=== PATIENT | male | born 1955 | race Caucasian/White ===

== ENCOUNTER 2017-08-23 10:12 | Emergency (ER) | payer OTHER ==
[2017-08-23 10:19] VITALS: BMI 26.6
[2017-08-23 10:22] VITALS: TEMP 98.4
[2017-08-23] MEDS ORDERED: Morphine 4 MG/ML VIAL ONE (12:54)
--- NOTE | 2017-08-23 13:06 | RAD ---
PROCEDURE: CHEST RADIOGRAPH, 1 VIEW HISTORY: cough COMPARISON: Chest radiograph dated 04/26/2016 FINDINGS: LUNGS: Clear. PLEURA: No pneumothorax or pleural fluid seen. CARDIOVASCULAR: Cardiomediastinal silhouette unchanged. OSSEOUS STRUCTURES: Unchanged. VISUALIZED UPPER ABDOMEN: Normal. OTHER FINDINGS: None. IMPRESSION: No active disease.
[2017-08-23] MEDS: Albuterol 0.083% Inhal Sol (2.5 mg/3 mL) UD INH STA (13:13)
[2017-08-23] MEDS: Sodium Chloride 0.9% 1,000 ML IV ONE (13:13)
[2017-08-23 13:14] LABS: BASO % 0.5 % (0.0-2.0); EOS # 0.1 K/uL (0.0-0.7); EOS % 0.8 % (0.0-4.0); HEMOGLOBIN 13.7 g/dL (12.0-18.0); LYMPH # 1.1 K/uL (1.0-4.3); LYMPH % 14.9 % (20.0-40.0); MEAN CELL VOLUME 89.1 fl (80.0-94.0); MEAN CORPUSCULAR HEMOGLOBIN 30.1 pg (27.0-31.0); MEAN CORPUSCULAR HGB CONC 33.7 g/dL (33.0-37.0); MEAN PLATELET VOLUME 7.1 fl (7.2-11.7); MONO # 0.9 K/uL (0.0-0.8); MONO % 12.6 % (0.0-10.0); NEUT # 5.1 K/uL (1.8-7.0); NEUT % 71.2 % (50.0-75.0); NRBC % 0.1 % (0.0-0.0); RBC 4.56 Mil/uL (4.40-5.90); RED CELL DISTRIBUTION WIDTH 12.5 % (11.5-14.5); WHITE BLOOD COUNT 7.2 K/uL (4.8-10.8)
--- NOTE | 2017-08-23 13:54 | CT ---
PROCEDURE: CT HEAD WITHOUT CONTRAST. HISTORY: Headache COMPARISON: None available. TECHNIQUE: Axial computed tomography images were obtained through the head/brain without intravenous contrast. Radiation dose: Total exam DLP = 853.75 mGy-cm. This CT exam was performed using one or more of the following dose reduction techniques: Automated exposure control, adjustment of the mA and/or kV according to patient size, and/or use of iterative reconstruction technique. FINDINGS: HEMORRHAGE: No intracranial hemorrhage. BRAIN: Munoz-white matter differentiation is preserved. There is no mass, mass effect or abnormal extra-axial fluid collection. VENTRICLES: The ventricles are normal in size, shape and configuration. CALVARIUM: The skull base and calvarium are normal. PARANASAL SINUSES: There is extensive abnormal soft tissue in the ethmoid air cells with fluid levels in the posterior ethmoid air cells, visualized maxillary sinus and fluid levels in the sphenoid sinus. The visualized frontal sinuses are clear. MASTOID AIR CELLS: Predominantly clear. OTHER FINDINGS: None. IMPRESSION: No acute intracranial abnormality. Severe ethmoid, maxillary and sphenoid sinusitis. Superimposed fluid levels in the posterior ethmoid and sphenoid sinuses may represent acute sinusitis in the appropriate clinical setting. These findings probably explain the cause of patient's headache.
[2017-08-23 14:08] LABS: ALB/GLOB RATIO 1.1 (1.0-2.1); ALT/SGPT 33 U/L (21-72); AST/SGOT 20 U/L (17-59); BLOOD UREA NITROGEN 13 mg/dl (9-20); CALCIUM 9.2 mg/dL (8.4-10.2); GFR AFRICAN-AMERICAN > 60; GFR NON-AFRICAN AMERICAN > 60
--- NOTE | 2017-08-23 14:53 | ED PDOC ---
HPI: CCC, URI, Sore Throat Time Seen by Provider: 08/23/17 10:45 Chief Complaint (Nursing): Flu-like Symptoms History Per: Patient History/Exam Limitations: no limitations Onset/Duration Of Symptoms: Gradual (8 days), Worse Since (last ngiht) Current Symptoms Are (Timing): Still Present Location Of Pain: Diffuse Myalgias, Headache Sick Contacts (Context): None Associated Symptoms: Chills, Sore Throat, Cough. denies: Fever, Sputum, Neck Pain, Sinus Drainage, Myalgias, Nasal Congestion, Nausea, Vomiting, Diarrhea Ear Symptoms: Bilateral: None Severity: Moderate Additional History Per: Patient, Family (daughter) Additional Complaint(s): Pt c/o headache, fever, cough and eyes burning x 8 days. Pt taking Mucinex w/o relief. no travel or sick contacts Past Medical History Vital Signs: Last Vital Signs Temp 98.4 F 08/23/17 10:19 Pulse 100 H 08/23/17 10:19 Resp 16 08/23/17 10:19 BP 129/78 08/23/17 10:19 Pulse Ox 99 08/23/17 10:19 - Medical History PMH: Anxiety, Arthritis, Depression, HTN, Hypercholesterolemia, Hyperlipidemia Denies: Atrial Fibrillation, CHF - Family History Family History: States: Unknown Family Hx - Home Medications Home Medications: Ambulatory Orders Medication Instructions Recorded Alprazolam [Alprazolam] 2 mg PO HS 10/24/14 Atorvastatin [Lipitor] 20 mg PO HS 10/24/14 Ciprofloxacin HCl [Cipro] 500 mg PO BID #14 tab 10/24/14 Cyclobenzaprine Hydrochlorid 5 mg PO DAILY PRN 10/24/14 [Cyclobenzaprine] Enalapril Maleate [Enalapril] 50 mg PO DAILY 10/24/14 Glimepiride [Glimepiride] 4 mg PO DAILY 10/24/14 Live Yeast Cell/Shark Oil 1 oin TP BID #1 oin 10/24/14 [Hemorrhoid Preparation] Meloxicam [Meloxicam] 15 mg PO DAILY 10/24/14 Metformin HCl [Metformin] 1,000 mg PO BID 10/24/14 Metronidazole [Flagyl] 500 mg PO BID #14 tab 10/24/14 Oxycodone HCl/Acetaminophen 1 tab PO Q6 PRN #14 tab 10/24/14 [Percocet 325 mg-5 mg] Risperidone [Risperidone] 0.5 mg PO HS 10/24/14 Sertraline Hydrochloride 100 mg PO DAILY 10/24/14 [Sertraline Hydrochloride] Sitagliptin Phosphate [Januvia] 100 mg PO BID 10/24/14 Zolpidem Tartrate [Zolpidem] 10 mg PO HS 10/24/14 Dicyclomine [Bentyl] 20 mg PO Q8 PRN #30 tab 04/26/16 Amoxicillin/Clavulanate [Augmentin 1 tab PO BID 10 Days tab 08/23/17 875 MG-125 MG] oxyCODONE/Acetaminophen [Percocet 1 ea PO QID PRN #12 tab 08/23/17 5/325 mg Tab] - Allergies Allergies/Adverse Reactions: Allergies Allergy/AdvReac Type Severity Reaction Status Date / Time No Known Allergies Allergy Verified 08/23/17 11:02 Review of Systems ROS Statement: Except As Marked, All Systems Reviewed And Found Negative Constitutional: Positive for: Chills. Negative for: Fever Cardiovascular: Negative for: Chest Pain, Palpitations, Light Headedness Respiratory: Positive for: Cough. Negative for: Shortness of Breath, Pleuritic Pain, Sputum Gastrointestinal: Negative for: Nausea, Vomiting, Abdominal Pain, Diarrhea Neurological: Positive for: Headache. Negative for: Weakness, Numbness, Confusion, Seizures, Altered Mental Status, Dizziness Physical Exam - Reviewed Nursing Documentation Reviewed: Yes Vital Signs Reviewed: Yes - Physical Exam Appears: Positive for: Uncomfortable Head Exam: Positive for: ATRAUMATIC, NORMAL INSPECTION, NORMOCEPHALIC Eye Exam: Positive for: Normal appearance, EOMI, PERRL. Negative for: Periorbital swelling, Periorbital tenderness, Conjunctival injection ENT: Positive for: Pharynx Is (clear). Negative for: Nasal Congestion, Pharyngeal Erythema, Tonsillar Exudate, Tonsillar Swelling Neck: Positive for: Normal, Painless ROM, Supple. Negative for: Decreased ROM, Limited ROM, Trachea Midline Cardiovascular/Chest: Positive for: Regular Rate, Rhythm, Chest Non Tender. Negative for: Edema, Gallop, Murmur, Bradycardia, Tachycardia Respiratory: Positive for: Normal Breath Sounds. Negative for: Decreased Breath Sounds, Accessory Muscle Use, Crackles, Stridor, Wheezing, Respiratory Distress Pulses-Radial (L): 2+ Pulses-Radial (R): 2+ Gastrointestinal/Abdominal: Positive for: Normal Exam, Bowel Sounds, Soft. Negative for: Tenderness Back: Positive for: Normal Inspection. Negative for: L CVA Tenderness, R CVA Tenderness Extremity: Positive for: Normal ROM. Negative for: Tenderness, Pedal Edema, Calf Tenderness, Deformity, Swelling Neurologic/Psych: Positive for: Alert, car carder II-XII, Oriented. Negative for: Motor/Sensory Deficits, Aphasia, Facial Droop - Laboratory Results Result Diagrams: 08/23/17 12:45 08/23/17 12:45 - ECG ECG: Positive for: Interpreted By Me ECG Rhythm: Positive for: Normal QRS, Normal ST Segment, Sinus Rhythm (rate of 83), ST/T Changes Interpretation Of Abn EKG: no evidence of ischemia O2 Sat by Pulse Oximetry: 99 Pulse Ox Interpretation: Normal - Radiology X-Ray: Interpreted by Me X-Ray Interpretation: No Acute Disease - Progress ED Course And Treament: ct head with sinusitis. sx amrkedly improved given unasyn. advise augmentin and percocet for pain close f/u with pmd/ Re-evaluation Time: 14:00 Condition: Improved Disposition - Clinical Impression Clinical Impression: Sinusitis - Patient ED Disposition Is Patient to be Admitted: No Counseled Patient/Family Regarding: Studies Performed, Diagnosis, Need For Followup - Disposition Referrals: [facility] [Outside] (2 to 3 days) Deo Neville MD [Staff Provider] - (2 to 3 days) Disposition: Routine/Home Disposition Time: 14:55 Condition: STABLE Prescriptions: Amoxicillin/Clavulanate [Augmentin 875 MG-125 MG] 1 tab PO BID 10 Days tab oxyCODONE/Acetaminophen [Percocet 5/325 mg Tab] 1 ea PO QID PRN #12 tab PRN Reason: Pain, Moderate (4-7) Instructions: Sinusitis (ED) Print Language: CHINESE
[2017-08-23 18:36] VITALS: BP 122/70; PULSE 76; RESP 18; O2SAT 98
--- NOTE | 2017-08-24 11:04 | CARD ---
APPROVED REPORT EKG Measurement Heart [id number] NM [id number] <Conclusion> Normal sinus rhythm Normal ECG
== END 2017-08-23 17:00 | disposition home or self-care (01) ==
LOC: H.ER 10:12
DX: J32.3 Chronic sphenoidal sinusitis (principal); R05 Cough; E78.00 Pure hypercholesterolemia, unspecified; F32.9 Major depressive disorder, single episode, unspecified; F41.9 Anxiety disorder, unspecified; I10 Essential (primary) hypertension; Z79.84 Long term (current) use of oral hypoglycemic drugs
CPT/HCPCS: 70450; 71045; 80053; 84484; 85025; 87070; 87430; 87804; 93005; 94640; 96361; 96365; 96375; 99283; J0295; J2270; J7040

== ENCOUNTER 2018-03-11 03:17 | Inpatient (IN) | payer OTHER ==
[2018-03-11 03:27] VITALS: BMI 26.4
[2018-03-11] MEDS ORDERED: Sodium Chloride 0.9% 1,000 ML IV STA ×2 (04:17→05:21)
[2018-03-11] MEDS ORDERED: Iohexol 240 (50 ml) PO ONE (04:32)
[2018-03-11] MEDS ORDERED: Iohexol 240 (50 ml) ONE (04:39)
--- NOTE | 2018-03-11 04:59 | ED PDOC ---
HPI: Abdomen Time Seen by Provider: 03/11/18 03:35 Chief Complaint (Nursing): Abdominal Pain Chief Complaint (Provider): Abdominal Pain History Per: Patient History/Exam Limitations: no limitations Onset/Duration Of Symptoms: Days (x5) Current Symptoms Are (Timing): Still Present Additional Complaint(s): 62 year old male with pmHx of DM and HTN, arrives to ED with complaints of diffuse abdominal pain associated with fever, chills and intermittent diarrhea ongoing for 3 days. Additionally, he reports experiencing insomnia for 4 days and asking for "something to help him sleep". Patient denies any vomiting, bloody stools or urinary symptoms. Past Medical History Reviewed: Historical Data, Nursing Documentation, Vital Signs Vital Signs: Last Vital Signs Temp 98.5 F 03/11/18 17:36 Pulse 106 H 03/11/18 17:36 Resp 20 03/11/18 17:36 BP 107/76 03/11/18 17:36 Pulse Ox 98 03/11/18 17:36 - Medical History PMH: Anxiety, Arthritis, Depression, HTN, Hypercholesterolemia, Hyperlipidemia Denies: Atrial Fibrillation, CHF - Surgical History Surgical History: Endoscopy - Family History Family History: States: Unknown Family Hx - Social History Current smoker - smoking cessation education provided: No Ex-Smoker (has not smoked in the last 12 months): No Alcohol: None Drugs: Denies - Home Medications Home Medications: Ambulatory Orders Medication Instructions Recorded ALPRAZolam [Xanax] 2 mg PO BID 03/11/18 Aspirin [Aspirin Chewable] 81 mg PO DAILY 03/11/18 Enalapril Maleate [Vasotec] 5 mg PO DAILY 03/11/18 Metformin HCl [Glucophage] 1,000 mg PO BID 03/11/18 Pravastatin Sodium [Pravachol] 40 mg PO HS 03/11/18 SITagliptin [Januvia] 100 mg PO DAILY 03/11/18 Zolpidem Tartrate [Ambien] 10 mg PO HS PRN 03/11/18 - Allergies Allergies/Adverse Reactions: Allergies Allergy/AdvReac Type Severity Reaction Status Date / Time No Known Allergies Allergy Verified 03/11/18 03:44 Review of Systems ROS Statement: Except As Marked, All Systems Reviewed And Found Negative Constitutional: Positive for: Fever, Chills, Malaise (insomnia) Gastrointestinal: Positive for: Abdominal Pain, Diarrhea (intermittent). Negative for: Vomiting, Hematochezia Genitourinary Male: Negative for: Dysuria, Incontinence, Hematuria Physical Exam - Reviewed Nursing Documentation Reviewed: Yes Vital Signs Reviewed: Yes - Physical Exam Appears: Positive for: Non-toxic, No Acute Distress Head Exam: Positive for: ATRAUMATIC, NORMAL INSPECTION, NORMOCEPHALIC Skin: Positive for: Normal Color Eye Exam: Positive for: Normal appearance ENT: Positive for: Normal ENT Inspection Neck: Positive for: Normal Cardiovascular/Chest: Positive for: Chest Non Tender, Tachycardia (with regular rate) Respiratory: Positive for: Normal Breath Sounds. Negative for: Respiratory Distress Gastrointestinal/Abdominal: Positive for: Soft, Tenderness (epigastric; suprapubic) Back: Positive for: Normal Inspection Extremity: Positive for: Normal ROM (upper/lower) Neurologic/Psych: Positive for: Alert, Oriented. Negative for: Motor/Sensory Deficits - Laboratory Results Result Diagrams: 03/11/18 04:31 03/11/18 04:31 - ECG O2 Sat by Pulse Oximetry: 95 (RA) Pulse Ox Interpretation: Normal Medical Decision Making Medical Decision Making: Initial Impression: Abdominal pain Differential Diagnosis includes but not limited to: colitis; diverticulitis; UTI r/o appendicitis Initial Plan: * VBG * CT ABD/pelvis with IV contrast * EKG * CMP * Lipase * Urine dipstick * CBC * Accucheck * Ativan 1mg IVP * NS 1,000ml IV per 1,000mls/hr * Omnipaque 50ml PO * Toradol 30mg IVP * Blood culture * UA Scribe Attestation: Documented by Nava Danielson, acting as a scribe for Byron Ugalde MD. Provider Scribe Attestation: All medical record entries made by the Scribe were at my direction and personally dictated by me. I have reviewed the chart and agree that the record accurately reflects my personal performance of the history, physical exam, medical decision making, and the department course for this patient. I have also personally directed, reviewed, and agree with the discharge instructions and disposition. Time: 699 -- Patient endorsed to Dr. Hernandez, pending urine and CT. ____ Scribe Attestation: Documented by Tito Funk acting as a scribe for Dr. Byron Ugalde MD. Provider Scribe Attestation: All medical record entries made by the Scribe were at my direction and personally dictated by me. I have reviewed the chart and agree that the record accurately reflects my personal performance of the medical decision making for this patient. I have also personally directed, reviewed, and agree with the discharge instructions and disposition. Disposition - Clinical Impression Clinical Impression: Liver abscess, Sepsis - Patient ED Disposition Is Patient to be Admitted: Transfer of Care Counseled Patient/Family Regarding: Studies Performed, Diagnosis - Disposition Disposition: Transfer of Care Disposition Time: 07:00 Condition: STABLE Patient Signed Over To: Madi Hernandez
[2018-03-11 05:06] LABS: VENOUS BLOOD GAS BASE EXCESS -0.2 mmol/L (0.0-2.0); VENOUS BLOOD GAS PCO2 41 mmHg (40-60); VENOUS BLOOD GAS PO2 30 mm/Hg (30-55); VENOUS BLOOD PH 7.39 (7.32-7.43)
[2018-03-11 05:16] LABS: BASO % 0.3 % (0.0-2.0); HEMOGLOBIN 15.1 g/dL (12.0-18.0); LYMPH # 0.3 K/uL (1.0-4.3); LYMPH % 2.5 % (20.0-40.0); MEAN CELL VOLUME 90.3 fl (80.0-94.0); MEAN CORPUSCULAR HEMOGLOBIN 30.5 pg (27.0-31.0); MEAN CORPUSCULAR HGB CONC 33.7 g/dL (33.0-37.0); MEAN PLATELET VOLUME 7.4 fl (7.2-11.7); MONO # 0.9 K/uL (0.0-0.8); NEUT % 90.2 % (50.0-75.0); PLATELET COUNT 232 K/uL (130-400); RBC 4.94 Mil/uL (4.40-5.90); RED CELL DISTRIBUTION WIDTH 14.3 % (11.5-14.5); WHITE BLOOD COUNT 13.3 K/uL (4.8-10.8)
[2018-03-11 05:22] LABS: ALB/GLOB RATIO 1.5 (1.0-2.1); ALT/SGPT 42 U/L (21-72); AST/SGOT 32 U/L (17-59); BLOOD UREA NITROGEN 26 mg/dl (9-20); CALCIUM 9.6 mg/dL (8.4-10.2); GFR AFRICAN-AMERICAN > 60; GFR NON-AFRICAN AMERICAN > 60; LIPASE 148 U/L (23-300)
[2018-03-11 06:37] LABS: BANDS 1 % (0-2); LYMPHOCYTE 5 % (20-50); MONOCYTE 4 % (0-10); NEUTROPHIL 90 % (42-75); PLATELET ESTIMATE NORMAL (NORMAL); TOTAL CELLS COUNTED 100
[2018-03-11 06:38] LABS: ANISOCYTOSIS SLIGHT; OVALOCYTES SLIGHT; POIKILOCYTOSIS SLIGHT
[2018-03-11 06:39] LABS: TEARDROP CELLS SLIGHT
--- NOTE | 2018-03-11 07:41 | ED PDOC ---
- Laboratory Results Result Diagrams: 03/11/18 04:31 03/11/18 04:31 Interpretation Of Abn Labs: 13.3 wbc; 26 bun - ECG ECG: Positive for: Interpreted By Me, Viewed By Me ECG Rhythm: Positive for: Sinus Tachycardia O2 Sat by Pulse Oximetry: 95 (RA) Pulse Ox Interpretation: Normal - CT Scan/US ct Other Rad Studies (CT/US): Read By Radiologist Other Rad Interpretation: hepatic hypodense area US Other Rad Studies (CT/US): Read By Radiologist Other Rad Interpretation: no acute - Progress ED Course And Treament: 1229: Spoke with son. Pt. returned from DR March 03. Pain in abd since then. ? finding on liver. Will tx for liver abscess. Admit. Meets sepsis criteria. Pt. pcp Dr. Staton. She does not admit to anyone specific per our records. Medicine inspector canned food reconditioning paged. 1234: Spoke with Dr. Mills. Will admit. Dr. Florentino aware and agrees with current plan. Condition: Improving,but remains with symptoms Medical Decision Making Medical Decision Making: Time: 0700 -- Patient endorsed to me by Dr. Ugalde. Patient is a 62 y/o male who presents to the ED complaining of abdominal pain and flu-like symptoms, pending urine and CT scan. Time: 0853 CT ABD/PELVIS RESULTS FINDINGS: LOWER THORAX: Unremarkable. LIVER: Nonspecific new 2.2 x 1.5 cm subcapsular inferior right hepatic lobe ill- defined hypodense area (series 3, image 55). Mild central intrahepatic ductal dilatation. GALLBLADDER AND BILE DUCTS: Unremarkable. PANCREAS: Pancreatic divisum. No gross lesion or ductal dilatation. SPLEEN: Unremarkable. ADRENALS: Unremarkable. No mass. KIDNEYS AND URETERS: Left upper pole 4.1 x 3.6 cm cyst. Left lower pole 1.4 x 1.0 cm indeterminate structure that cannot be characterized as a cyst (103 HU). No hydronephrosis. No solid mass. VASCULATURE: Unremarkable. No aortic aneurysm. BOWEL: Unremarkable. No obstruction. No gross mural thickening. APPENDIX: Normal appendix. PERITONEUM: Unremarkable. No free fluid. No free air. LYMPH NODES: Unremarkable. No enlarged lymph nodes. BLADDER: Unremarkable. REPRODUCTIVE: Prostatomegaly. BONES: No acute fracture. OTHER FINDINGS: None. IMPRESSION: Nonspecific knee 2.2 x 1.5 cm subcapsular inferior right hepatic lobe ill- defined hypodense area. This may represent a small abscess or metastasis among other considerations. Indeterminate left lower pole 1.4 x 1.0 cm structure that cannot be characterized as simple cyst. Time: 957 Plan: -- Abdomen Limited US Time: 1208 ABDOMEN US RESULTS FINDINGS: LIVER: Measures 12.9 cm in length. Normal echogenicity of the liver parenchyma. Area in question on CT scan not visualized on the current examination. No intrahepatic bile duct dilatation. GALLBLADDER: Unremarkable. No gallstones. COMMON BILE DUCT: Measures 3 mm. No stones. No dilatation. PANCREAS: Unremarkable as visualized. No mass. No ductal dilatation. RIGHT KIDNEY: Measures 10.4 x 5.1 x 4.9 cm in length. Normal echogenicity. No calculus, mass, or hydronephrosis. AORTA: No aneurysmal dilatation. IVC: Unremarkable. OTHER FINDINGS: None . IMPRESSION: Unremarkable right upper quadrant ultrasound. The area questioned on CT scan was not visualized on the current examination Scribe Attestation: Documented by Tito Funk acting as a scribe for Dr. Madi Hernandez MD. Provider Scribe Attestation: All medical record entries made by the Scribe were at my direction and personally dictated by me. I have reviewed the chart and agree that the record accurately reflects my personal performance of the history, physical exam, medical decision making, and the department course for this patient. I have also personally directed, reviewed, and agree with the discharge instructions and disposition. Disposition Counseled Patient/Family Regarding: Studies Performed, Diagnosis - Clinical Impression Clinical Impression: Liver abscess, Sepsis - POA Present On Arrival: None - Disposition Disposition: Admitted as In-Patient Disposition Time: 11:00 Condition: FAIR
[2018-03-11] MEDS ORDERED: Sodium Chloride 0.9% 50 ML IV ONE (08:10)
[2018-03-11] MEDS ORDERED: Iohexol 300 100 ML IJ ONE (08:10)
[2018-03-11 08:41] LABS: URINE BILIRUBIN NEGATIVE (NEGATIVE); URINE BLOOD NEGATIVE (NEGATIVE); URINE CLARITY CLEAR (Clear); URINE COLOR YELLOW (YELLOW); URINE GLUCOSE (UA) NEG (Normal); URINE LEUKOCYTE ESTERASE NEG Leu/uL (Negative); URINE PROTEIN NEGATIVE (NEGATIVE); URINE UROBILINOGEN 0.2-1.0 mg/dL (0.2-1.0)
--- NOTE | 2018-03-11 08:54 | CT ---
Date of service: 03/11/2018 PROCEDURE: CT Abdomen and Pelvis with contrast HISTORY: ABDOMINAL PAIN COMPARISON: CT scan of the abdomen pelvis dated 04/26/2016. TECHNIQUE: Contrast dose: 95 mL Omnipaque 300 Radiation dose: Total exam DLP = 666.0 mGy-cm. This CT exam was performed using one or more of the following dose reduction techniques: Automated exposure control, adjustment of the mA and/or kV according to patient size, and/or use of iterative reconstruction technique. FINDINGS: LOWER THORAX: Unremarkable. LIVER: Nonspecific new 2.2 x 1.5 cm subcapsular inferior right hepatic lobe ill-defined hypodense area (series 3, image 55). Mild central intrahepatic ductal dilatation. GALLBLADDER AND BILE DUCTS: Unremarkable. PANCREAS: Pancreatic divisum. No gross lesion or ductal dilatation. SPLEEN: Unremarkable. ADRENALS: Unremarkable. No mass. KIDNEYS AND URETERS: Left upper pole 4.1 x 3.6 cm cyst. Left lower pole 1.4 x 1.0 cm indeterminate structure that cannot be characterized as a cyst (103 HU). No hydronephrosis. No solid mass. VASCULATURE: Unremarkable. No aortic aneurysm. BOWEL: Unremarkable. No obstruction. No gross mural thickening. APPENDIX: Normal appendix. PERITONEUM: Unremarkable. No free fluid. No free air. LYMPH NODES: Unremarkable. No enlarged lymph nodes. BLADDER: Unremarkable. REPRODUCTIVE: Prostatomegaly. BONES: No acute fracture. OTHER FINDINGS: None. IMPRESSION: Nonspecific knee 2.2 x 1.5 cm subcapsular inferior right hepatic lobe ill-defined hypodense area. This may represent a small abscess or metastasis among other considerations. Indeterminate left lower pole 1.4 x 1.0 cm structure that cannot be characterized as simple cyst.
--- NOTE | 2018-03-11 12:10 | US ---
Date of service: 03/11/2018 HISTORY: liver mass, eval for abscess COMPARISON: CT scan of the abdomen and pelvis performed earlier the same day. TECHNIQUE: Sonographic evaluation of the right upper quadrant of the abdomen. FINDINGS: LIVER: Measures 12.9 cm in length. Normal echogenicity of the liver parenchyma. Area in question on CT scan not visualized on the current examination. No intrahepatic bile duct dilatation. GALLBLADDER: Unremarkable. No gallstones. COMMON BILE DUCT: Measures 3 mm. No stones. No dilatation. PANCREAS: Unremarkable as visualized. No mass. No ductal dilatation. RIGHT KIDNEY: Measures 10.4 x 5.1 x 4.9 cm in length. Normal echogenicity. No calculus, mass, or hydronephrosis. AORTA: No aneurysmal dilatation. IVC: Unremarkable. OTHER FINDINGS: None . IMPRESSION: Unremarkable right upper quadrant ultrasound. The area questioned on CT scan was not visualized on the current examination
[2018-03-11] MEDS ORDERED: metroNIDAZOLE 500mg/100ml NS 100 ML IV STA (12:28)
[2018-03-11] MEDS ORDERED: cefTRIAXone (Rocephin) 1 gm Inj IV ONE (12:28)
[2018-03-11] MEDS ORDERED: metroNIDAZOLE 500mg/100ml NS 100 ML IVPB ONE (12:47)
[2018-03-11] MEDS ORDERED: cefTRIAXone (Rocephin) 1 gm Inj ONE (12:47)
--- NOTE | 2018-03-11 14:44 | CARD ---
APPROVED REPORT Date of service: 03/11/2018 EKG Measurement Heart [id number] MD [id number] <Conclusion> Sinus tachycardia Possible Left atrial enlargement Anterior infarct, age undetermined Abnormal ECG
--- NOTE | 2018-03-11 15:01 | CP.PCM.PN ---
Subjective - Date & Time of Evaluation Date of Evaluation: 03/11/18 Time of Evaluation: 15:56 - Subjective Subjective: I D NOTE PATIENT ADMITTED VIA ER APPEARS TO BE POSSIBLE LIVER ABSCESS HAVE STARTED UNASYN AND FLAGYL CULTURES ORDEREDFULL CONSULT TO FOLLOW Objective - Vital Signs/Intake and Output Vital Signs (last 24 hours): Temp Pulse Resp BP Pulse Ox 98.2 F 85 18 163/77 H 95 03/11/18 03:25 03/11/18 11:08 03/11/18 11:08 03/11/18 11:08 03/11/18 12:36 - Medications Medications: Current Medications Metronidazole (Flagyl 500mg/100ml Ns) 100 mls @ 100 mls/hr IVPB Q8 LEONID PRN Reason: Protocol Ampicillin Sodium/Sulbactam (Sodium 3 gm/ Sodium Chloride) 100 mls @ 100 mls/ hr IVPB Q8H LEONID PRN Reason: Protocol - Labs Labs: 03/11/18 04:31 03/11/18 04:31
[2018-03-11] MEDS: Sodium Chloride 0.9% 1,000 ML IV SCH (16:31)
[2018-03-11] MEDS: metroNIDAZOLE 500mg/100ml NS 100 ML IVPB SCH (19:13)
[2018-03-11] MEDS ORDERED: ZOLPIDEM TARTRATE 10 MG PO PRN (22:13)
[2018-03-11] MEDS: Insulin Regular 100 units/ml SC SCH (22:59)
[2018-03-11] MEDS: Pravastatin Sodium 40 MG TAB PO SCH (22:59)
[2018-03-12] MEDS: metroNIDAZOLE 500mg/100ml NS 100 ML IVPB SCH ×3 (00:43→16:08)
[2018-03-12] MEDS: Sodium Chloride 0.9% 1,000 ML IV SCH ×3 (00:44→12:47)
[2018-03-12] MEDS: Insulin Regular 100 units/ml SC SCH ×4 (06:30→22:10)
[2018-03-12 07:20] LABS: HEMOGLOBIN 14.6 g/dL (12.0-18.0); MEAN CELL VOLUME 90.8 fl (80.0-94.0); MEAN CORPUSCULAR HEMOGLOBIN 30.9 pg (27.0-31.0); MEAN CORPUSCULAR HGB CONC 34.1 g/dL (33.0-37.0); RBC 4.71 Mil/uL (4.40-5.90); RED CELL DISTRIBUTION WIDTH 14.7 % (11.5-14.5); WHITE BLOOD COUNT 11.6 K/uL (4.8-10.8)
[2018-03-12 07:40] LABS: ALB/GLOB RATIO 1.1 (1.0-2.1); ALBUMIN 3.2 g/dL (3.5-5.0); ALT/SGPT 61 U/L (21-72); AMYLASE 60 U/L (30-110); AST/SGOT 61 U/L (17-59); BILIRUBIN,DIRECT 0.4 mg/ml (0.0-0.4); BLOOD UREA NITROGEN 14 mg/dl (9-20); GFR AFRICAN-AMERICAN > 60; GFR NON-AFRICAN AMERICAN > 60; LIPASE 41 U/L (23-300)
[2018-03-12 10:53] LABS: T4 4.89 ug/dl (5.5-11.0)
[2018-03-12 12:17] LABS: HEPATITIS B SURFACE AG Negative (NEGATIVE)
[2018-03-12 12:22] LABS: HEPATITIS A IGM NEGATIVE (NEGATIVE); HEPATITIS B CORE AB NEGATIVE (NEGATIVE)
[2018-03-12 12:34] LABS: HEPATITIS C ANTIBODY NEGATIVE (NEGATIVE)
--- NOTE | 2018-03-12 13:49 | CP.PCM.HP ---
History of Present Illness - History of Present Illness History of Present Illness: CC: Abdominal pain. 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 Worsening symptoms: Flu like symptom, fever and chills while at home, also reports insomnia 2nd to clinical condition. Aggravated factor: Food. Pt denied: CP, syncope, dizziness, weakness, SOB, cough, urinary symptoms, sick contact, recent travel out of [place]. Abd/Pelv CT showed: Nonspecific knee 2.2x1.5 cm subcapsular inferior right hepatic lobe ill-defined hypodence area. This may represent a small abscess or or metastasis among other considerations. Indeterminate left lower pole 1.4 x 1.0 cm structure that cannot be characterized as simple cyst. Abdomen U-S: Unremarkable. EKG: Sinus tachycardia, anterior infarct, age undetermined. Present on Admission - Present on Admission Any Indicators Present on Admission: No Review of Systems - Constitutional Constitutional: Chills, Fever - EENT Eyes: Requires Corrective Lenses Ears: Other (negative) Nose/Mouth/Throat: Other (negative) - Cardiovascular Cardiovascular: Rapid Heart Rate - Respiratory Respiratory: Other (negative) - Gastrointestinal Gastrointestinal: Abdominal Pain, Belching, Diarrhea - Genitourinary Genitourinary: Other (negative) - Musculoskeletal Musculoskeletal: Other (negative) - Integumentary Integumentary: Other (negative) - Neurological Neurological: Other (negative) - Psychiatric Psychiatric: Other (negative) - Endocrine Endocrine: Other (negative) - Hematologic/Lymphatic Hematologic: Other (negative) Past Patient History - Past Medical History & Family History Past Medical History?: Yes - Past Social History Smoking Status: Never Smoked Alcohol: None Drugs: Denies Home Situation {Lives}: With Family - CARDIAC Hx Cardiac Disorders: Yes Hx Hypercholesterolemia: Yes Hx Hypertension: Yes - PULMONARY Hx Respiratory Disorders: No - NEUROLOGICAL Hx Neurological Disorder: No - HEENT Hx HEENT Problems: No - RENAL Hx Chronic Kidney Disease: No - ENDOCRINE/METABOLIC Hx Endocrine Disorders: Yes Hx Diabetes Mellitus Type 2: Yes - HEMATOLOGICAL/ONCOLOGICAL Hx Blood Disorders: No Hx AIDS: No Hx Human Immunodeficiency Virus (HIV): No - INTEGUMENTARY Hx Dermatological Problems: No - MUSCULOSKELETAL/RHEUMATOLOGICAL Hx Musculoskeletal Disorders: Yes Hx Arthritis: Yes Hx Falls: No - GASTROINTESTINAL Hx Gastrointestinal Disorders: Yes Hx Colitis: Yes - GENITOURINARY/GYNECOLOGICAL Hx Genitourinary Disorders: No - PSYCHIATRIC Hx Psychophysiologic Disorder: Yes Hx Anxiety: Yes Hx Depression: Yes Hx Substance Use: No - SURGICAL HISTORY Hx Surgeries: No - ANESTHESIA Hx Anesthesia: Yes Hx Anesthesia Reactions: No Hx Malignant Hyperthermia: No Meds Allergies/Adverse Reactions: Allergies Allergy/AdvReac Type Severity Reaction Status Date / Time No Known Allergies Allergy Verified 03/11/18 03:44 Physical Exam - Constitutional Appears: No Acute Distress - Head Exam Head Exam: NORMAL INSPECTION - Eye Exam Eye Exam: PERRL - ENT Exam ENT Exam: Normal Exam - Neck Exam Neck exam: Positive for: Normal Inspection - Respiratory Exam Respiratory Exam: Clear to Auscultation Bilateral - Cardiovascular Exam Cardiovascular Exam: REGULAR RHYTHM - GI/Abdominal Exam GI & Abdominal Exam: Soft, Tenderness (mild epigastric area) - Extremities Exam Extremities exam: Positive for: normal inspection - Back Exam Back exam: NORMAL INSPECTION - Neurological Exam Neurological exam: Alert, Oriented x3 Additional comments: No motor/sensory deficit. - Psychiatric Exam Psychiatric exam: Normal Mood - Skin Skin Exam: Normal Color, Warm Results - Vital Signs Recent Vital Signs: Last Vital Signs Temp 97.4 F L 03/12/18 12:00 Pulse 76 03/12/18 12:00 Resp 20 03/12/18 12:00 BP 106/71 03/12/18 12:00 Pulse Ox 100 03/12/18 12:00 korey Ochoa - Labs Result Diagrams: 03/14/18 05:30 03/14/18 05:30 Labs: Laboratory Results - last 24 hr 03/11/18 03/11/18 03/12/18 15:15 22:14 04:27 WBC RBC Hgb Hct MCV MCH MCHC RDW Plt Count Sodium Potassium Chloride Carbon Dioxide Anion Gap BUN Creatinine Est GFR ( Amer) Est GFR (Non-Af Amer) POC Glucose (mg/dL) 75 103 126 H Random Glucose Calcium Total Bilirubin Direct Bilirubin AST ALT Alkaline Phosphatase Total Protein Albumin Globulin Albumin/Globulin Ratio Amylase Lipase Alpha Fetoprotein Thyroxine (T4) TSH 3rd Generation Hepatitis A IgM Ab Hep Bs Antigen Hep B Core IgM Ab Hepatitis C Antibody 03/12/18 03/12/18 03/12/18 05:30 05:30 05:30 WBC RBC Hgb Hct MCV MCH MCHC RDW Plt Count Sodium 142 Potassium 4.3 Chloride 108 H Carbon Dioxide 26 Anion Gap 12 BUN 14 Creatinine 0.8 Est GFR ( Amer) > 60 Est GFR (Non-Af Amer) > 60 POC Glucose (mg/dL) Random Glucose 133 H Calcium 8.0 L Total Bilirubin 0.6 Direct Bilirubin 0.4 AST 61 H D ALT 61 Alkaline Phosphatase 36 L D Total Protein 6.0 L Albumin 3.2 L Globulin 2.8 Albumin/Globulin Ratio 1.1 Amylase 60 Lipase 41 Alpha Fetoprotein 1.5 Thyroxine (T4) 4.89 L TSH 3rd Generation 1.94 Hepatitis A IgM Ab Negative Hep Bs Antigen Negative Hep B Core IgM Ab Negative Hepatitis C Antibody Negative 03/12/18 03/12/18 05:30 11:00 WBC 11.6 H RBC 4.71 Hgb 14.6 Hct 42.8 MCV 90.8 MCH 30.9 MCHC 34.1 RDW 14.7 H Plt Count 170 Sodium Potassium Chloride Carbon Dioxide Anion Gap BUN Creatinine Est GFR ( Amer) Est GFR (Non-Af Amer) POC Glucose (mg/dL) 147 H Random Glucose Calcium Total Bilirubin Direct Bilirubin AST ALT Alkaline Phosphatase Total Protein Albumin Globulin Albumin/Globulin Ratio Amylase Lipase Alpha Fetoprotein Thyroxine (T4) TSH 3rd Generation Hepatitis A IgM Ab Hep Bs Antigen Hep B Core IgM Ab Hepatitis C Antibody reviewed J.P. - EKG Data EKG comments: reviewed J.P. - Imaging and Cardiology CT scan - abdomen Status: Report reviewed by me (J.P.) CT scan - pelvis Status: Report reviewed by me (J.P.) US - abdomen Status: Report reviewed by me (J.P.) Assessment & Plan (1) Abdominal pain Status: Acute Priority: High (2) Liver abscess Status: Acute Priority: High (3) Positive blood culture Status: Acute Priority: High (4) Sepsis Status: Acute - Assessment and Plan (Free Text) Plan: Zosyn , Flagyl as per ID, continue Vasotec , Pravachol, Humulin Accu-Check - Date & Time Date: 03/12/18 Time: 12:45
--- NOTE | 2018-03-12 15:42 | CP.PCM.PN ---
Subjective - Date & Time of Evaluation Date of Evaluation: 03/12/18 Time of Evaluation: 15:35 - Subjective Subjective: I D NOTE HAS GROWN GEAM NEGATIVE RODS IN BLOOD. NO ID YET HAVE ADDED TOBRAMYCIN WHILE WE AWAT C & S RESULTS Objective - Vital Signs/Intake and Output Vital Signs (last 24 hours): Temp Pulse Resp BP Pulse Ox 97.4 F L 76 20 106/71 100 03/12/18 12:00 03/12/18 12:00 03/12/18 12:00 03/12/18 12:00 03/12/18 12:00 - Medications Medications: Current Medications Acetaminophen (Tylenol 325mg Tab) 650 mg PO Q4 PRN PRN Reason: Fever >100.4 F Last Admin: 03/11/18 20:15 Dose: 650 mg Alprazolam (Xanax) 2 mg PO BID@0900,2200 [facility] Aspirin (Aspirin Chewable) 81 mg PO DAILY [facility] Last Admin: 03/12/18 08:48 Dose: 81 mg Enalapril Maleate (Vasotec) 5 mg PO DAILY [facility] Last Admin: 03/12/18 08:48 Dose: 5 mg Metronidazole (Flagyl 500mg/100ml Ns) 100 mls @ 100 mls/hr IVPB Q8 [facility] PRN Reason: Protocol Last Admin: 03/12/18 08:50 Dose: 100 mls/hr Ampicillin Sodium/Sulbactam (Sodium 3 gm/ Sodium Chloride) 100 mls @ 100 mls/ hr IVPB Q8H [facility] PRN Reason: Protocol Last Admin: 03/12/18 06:22 Dose: 100 mls/hr Sodium Chloride (Sodium Chloride 0.9%) 1,000 mls @ 100 mls/hr IV .Q10H [facility] Stop: 03/12/18 16:09 Last Admin: 03/12/18 12:47 Dose: 100 mls/hr Tobramycin Sulfate 60 mg/ (Sodium Chloride) 101.5 mls @ 100 mls/hr IV Q12H [facility] PRN Reason: Protocol Insulin Human Regular (Humulin R) 0 units SC ACCU-CHECK [facility] PRN Reason: Protocol Last Admin: 03/12/18 12:31 Dose: Not Given Pravastatin Sodium (Pravachol) 40 mg PO HS [facility] Last Admin: 03/11/18 22:59 Dose: 40 mg Zolpidem Tartrate (Ambien) 5 mg PO HS PRN PRN Reason: Insomnia - Labs Labs: 03/12/18 05:30 03/12/18 05:30
[2018-03-12] MEDS: Tobramycin inj 60 MG in Sodium Chloride 0.9% 100 ML IV SCH (17:47)
[2018-03-12] MEDS: Pravastatin Sodium 40 MG TAB PO SCH (22:08)
[2018-03-13] MEDS: Tobramycin inj 60 MG in Sodium Chloride 0.9% 100 ML IV SCH ×2 (04:21→15:00)
[2018-03-13] MEDS: Insulin Regular 100 units/ml SC SCH ×4 (06:07→22:24)
[2018-03-13] MEDS: metroNIDAZOLE 500mg/100ml NS 100 ML IVPB SCH ×3 (09:00→17:00)
--- NOTE | 2018-03-13 16:36 | RAD ---
Date of service: 03/13/2018 PROCEDURE: Right Ankle Radiographs. HISTORY: Ankle pain/s/p fall COMPARISON: None FINDINGS: BONES: No acute fracture or destructive bony lesion identified. A tiny accessory ossicle is suggested inferior to the lateral malleolus. JOINTS: Normal. No osteoarthritis. Ankle mortise maintained. Talar dome intact SOFT TISSUES: Normal. OTHER FINDINGS: Large plantar calcaneal spur identified. There is ossification of the insertion of the Achilles tendon on the posterior calcaneus as well. IMPRESSION: Unremarkable right ankle radiographs.
--- NOTE | 2018-03-13 18:41 | CP.PCM.PN ---
Subjective - Date & Time of Evaluation Date of Evaluation: 03/13/18 Time of Evaluation: 18:38 - Subjective Subjective: i d note awiting blood culture identification also awaiting initial stool studies from 03/11 consult dictated on 03/11 not in chart no change in rx Objective - Vital Signs/Intake and Output Vital Signs (last 24 hours): Temp Pulse Resp BP Pulse Ox 97.5 F L 65 20 104/68 100 03/13/18 15:40 03/13/18 15:40 03/13/18 15:40 03/13/18 15:40 03/13/18 15:40 - Medications Medications: Current Medications Acetaminophen (Tylenol 325mg Tab) 650 mg PO Q4 PRN PRN Reason: Fever >100.4 F Last Admin: 03/11/18 20:15 Dose: 650 mg Alprazolam (Xanax) 2 mg PO BID@0900,2200 [facility] Last Admin: 03/13/18 09:16 Dose: 2 mg Aspirin (Aspirin Chewable) 81 mg PO DAILY [facility] Last Admin: 03/13/18 09:16 Dose: 81 mg Enalapril Maleate (Vasotec) 5 mg PO DAILY [facility] Last Admin: 03/13/18 09:16 Dose: 5 mg Metronidazole (Flagyl 500mg/100ml Ns) 100 mls @ 100 mls/hr IVPB Q8 [facility] PRN Reason: Protocol Last Admin: 03/13/18 17:00 Dose: 100 mls/hr Ampicillin Sodium/Sulbactam (Sodium 3 gm/ Sodium Chloride) 100 mls @ 100 mls/ hr IVPB Q8H [facility] PRN Reason: Protocol Last Admin: 03/13/18 15:00 Dose: 100 mls/hr Tobramycin Sulfate 60 mg/ (Sodium Chloride) 101.5 mls @ 100 mls/hr IV Q12H [facility] PRN Reason: Protocol Last Admin: 03/13/18 15:00 Dose: 100 mls/hr Insulin Human Regular (Humulin R) 0 units SC ACCU-CHECK [facility] PRN Reason: Protocol Last Admin: 03/13/18 17:38 Dose: Not Given Pravastatin Sodium (Pravachol) 40 mg PO HS [facility] Last Admin: 03/12/18 22:08 Dose: 40 mg Zolpidem Tartrate (Ambien) 5 mg PO HS PRN PRN Reason: Insomnia Last Admin: 03/12/18 22:08 Dose: 5 mg - Labs Labs: 03/12/18 05:30 03/12/18 05:30
--- NOTE | 2018-03-13 18:47 | CP.PCM.PN ---
Subjective - Date & Time of Evaluation Date of Evaluation: 03/13/18 Time of Evaluation: 12:20 - Subjective Subjective: F/U Abdominal pain. no abdominal pain, no diarrhea, on liquid diet , no N/V Objective - Vital Signs/Intake and Output Vital Signs (last 24 hours): Temp Pulse Resp BP Pulse Ox 97.5 F L 65 20 104/68 100 03/13/18 15:40 03/13/18 15:40 03/13/18 15:40 03/13/18 15:40 03/13/18 15:40 - Medications Medications: Current Medications Acetaminophen (Tylenol 325mg Tab) 650 mg PO Q4 PRN PRN Reason: Fever >100.4 F Last Admin: 03/11/18 20:15 Dose: 650 mg Alprazolam (Xanax) 2 mg PO BID@0900,2200 [facility] Last Admin: 03/13/18 09:16 Dose: 2 mg Aspirin (Aspirin Chewable) 81 mg PO DAILY [facility] Last Admin: 03/13/18 09:16 Dose: 81 mg Enalapril Maleate (Vasotec) 5 mg PO DAILY [facility] Last Admin: 03/13/18 09:16 Dose: 5 mg Metronidazole (Flagyl 500mg/100ml Ns) 100 mls @ 100 mls/hr IVPB Q8 [facility] PRN Reason: Protocol Last Admin: 03/13/18 17:00 Dose: 100 mls/hr Ampicillin Sodium/Sulbactam (Sodium 3 gm/ Sodium Chloride) 100 mls @ 100 mls/ hr IVPB Q8H [facility] PRN Reason: Protocol Last Admin: 03/13/18 15:00 Dose: 100 mls/hr Tobramycin Sulfate 60 mg/ (Sodium Chloride) 101.5 mls @ 100 mls/hr IV Q12H [facility] PRN Reason: Protocol Last Admin: 03/13/18 15:00 Dose: 100 mls/hr Insulin Human Regular (Humulin R) 0 units SC ACCU-CHECK [facility] PRN Reason: Protocol Last Admin: 03/13/18 17:38 Dose: Not Given Pravastatin Sodium (Pravachol) 40 mg PO HS [facility] Last Admin: 03/12/18 22:08 Dose: 40 mg Zolpidem Tartrate (Ambien) 5 mg PO HS PRN PRN Reason: Insomnia Last Admin: 03/12/18 22:08 Dose: 5 mg - Labs Labs: 03/12/18 05:30 03/12/18 05:30 - Constitutional Appears: No Acute Distress - Head Exam Head Exam: NORMAL INSPECTION - Eye Exam Eye Exam: PERRL - ENT Exam ENT Exam: Normal Exam - Neck Exam Neck Exam: Normal Inspection - Respiratory Exam Respiratory Exam: Clear to Ausculation Bilateral - Cardiovascular Exam Cardiovascular Exam: REGULAR RHYTHM - GI/Abdominal Exam GI & Abdominal Exam: Soft, Normal Bowel Sounds - Extremities Exam Extremities Exam: Normal Inspection - Back Exam Back Exam: NORMAL INSPECTION - Neurological Exam Neurological Exam: Alert, Oriented x3. absent: Motor Sensory Deficit - Psychiatric Exam Psychiatric exam: Normal Mood - Skin Skin Exam: Normal Color, Warm Assessment and Plan (1) Abdominal pain Status: Acute (2) Liver abscess Status: Acute (3) Positive blood culture Status: Acute - Assessment and Plan (Free Text) Plan: C Diff and Hepatitis profile negative, continue Unasyn, Flagyl, Tobramycin, and rest of treatment, IR consult.
[2018-03-13] MEDS: Pravastatin Sodium 40 MG TAB PO SCH (22:22)
[2018-03-14] MEDS: metroNIDAZOLE 500mg/100ml NS 100 ML IVPB SCH ×3 (00:47→16:35)
[2018-03-14] MEDS: Tobramycin inj 60 MG in Sodium Chloride 0.9% 100 ML IV SCH ×2 (03:46→15:00)
[2018-03-14 05:58] LABS: HEMOGLOBIN 14.3 g/dL (12.0-18.0); MEAN CELL VOLUME 91.2 fl (80.0-94.0); RBC 4.62 Mil/uL (4.40-5.90); RED CELL DISTRIBUTION WIDTH 14.9 % (11.5-14.5); WHITE BLOOD COUNT 8.3 K/uL (4.8-10.8)
[2018-03-14 06:23] LABS: ALB/GLOB RATIO 1.2 (1.0-2.1); ALBUMIN 3.1 g/dL (3.5-5.0); ALT/SGPT 56 U/L (21-72); AST/SGOT 26 U/L (17-59); BLOOD UREA NITROGEN 9 mg/dl (9-20); CALCIUM 8.8 mg/dL (8.4-10.2); GFR AFRICAN-AMERICAN > 60; GFR NON-AFRICAN AMERICAN > 60
[2018-03-14] MEDS: Insulin Regular 100 units/ml SC SCH ×4 (07:00→22:09)
[2018-03-14] MEDS ORDERED: Meropenem 1 GM in Sodium Chloride 0.9% 100 ML IVPB ONE (11:00)
--- NOTE | 2018-03-14 11:50 | CP.PCM.PN ---
Subjective - Date & Time of Evaluation Date of Evaluation: 03/14/18 Time of Evaluation: 11:40 - Subjective Subjective: I D NOTE KLEBSIELLA GREW FROM BLOOD CULTURES IS RESISTANT TO AMPICILLIN ,THUS HAVE DISCONTINUED UNASYN. PATIENT IS ALSO ON TOBRAMYCIN WHICH COVERED KLEBSIELLA THERE WILL BE NO IR DRAINAGE ,WIILL ADD MEROPENEM Objective - Vital Signs/Intake and Output Vital Signs (last 24 hours): Temp Pulse Resp BP Pulse Ox 98.1 F 71 20 133/81 98 03/14/18 08:32 03/14/18 08:32 03/14/18 08:32 03/14/18 08:32 03/14/18 08:32 - Medications Medications: Current Medications Acetaminophen (Tylenol 325mg Tab) 650 mg PO Q4 PRN PRN Reason: Fever >100.4 F Last Admin: 03/11/18 20:15 Dose: 650 mg Alprazolam (Xanax) 2 mg PO BID@0900,2200 [facility] Last Admin: 03/14/18 09:30 Dose: 2 mg Aspirin (Aspirin Chewable) 81 mg PO DAILY [facility] Last Admin: 03/14/18 09:29 Dose: 81 mg Enalapril Maleate (Vasotec) 5 mg PO DAILY [facility] Last Admin: 03/14/18 09:28 Dose: 5 mg Metronidazole (Flagyl 500mg/100ml Ns) 100 mls @ 100 mls/hr IVPB Q8 [facility] PRN Reason: Protocol Last Admin: 03/14/18 09:00 Dose: 100 mls/hr Tobramycin Sulfate 60 mg/ (Sodium Chloride) 101.5 mls @ 100 mls/hr IV Q12H [facility] PRN Reason: Protocol Last Admin: 03/14/18 03:46 Dose: 100 mls/hr Meropenem 1 gm/ Sodium (Chloride) 100 mls @ 100 mls/hr IVPB ONCE ONE PRN Reason: Protocol Stop: 03/14/18 11:59 Meropenem 1 gm/ Sodium (Chloride) 100 mls @ 100 mls/hr IVPB Q8 [facility] PRN Reason: Protocol Insulin Human Regular (Humulin R) 0 units SC ACCU-CHECK [facility] PRN Reason: Protocol Last Admin: 03/13/18 22:24 Dose: Not Given Pravastatin Sodium (Pravachol) 40 mg PO HS [facility] Last Admin: 03/13/18 22:22 Dose: 40 mg Zolpidem Tartrate (Ambien) 5 mg PO HS PRN PRN Reason: Insomnia Last Admin: 03/13/18 22:25 Dose: 5 mg - Labs Labs: 03/14/18 05:30 03/14/18 05:30
--- NOTE | 2018-03-14 12:52 | CP.PCM.CON ---
History of Present Illness - History of Present Illness History of Present Illness: GI Fellow PGY4, Consult note. Consulted for liver mass. Dinh Hawkins is very pleasant 62yo male with history of DM presenting with acute abdominal pain and fever. Patient was recently in the [place] for 1 month. He returned 1 week ago. His symptoms start two days after he returned to the [place]. He first complained of severe epigastric buring abdominal pain and acid reflux. Then he had a few episodes of non-bloody diarrhea without vomiting. He developed a few and SOB Tuesday. He also complained of headache, neck pain and photophobia which are mostly resolved now. He denied any sick contacts or consuming abnormal food. he has had a very difficult time sleeping. PMHx- DM, HTN PSHx- None FMHx- Admits prostate cancer of father. Denies colon/liver/stomach/esophageal cancer. Denies liver disease. SocHx- Occasional alcohol. Occasional cigar. Retired. Lives with family. 12pt ROS completed and negative except for above. Past Patient History - Past Medical History & Family History Past Medical History?: Yes - Past Social History Smoking Status: Never Smoked Alcohol: None Drugs: Denies Home Situation {Lives}: With Family - CARDIAC Hx Cardiac Disorders: Yes Hx Hypercholesterolemia: Yes Hx Hypertension: Yes - PULMONARY Hx Respiratory Disorders: No - NEUROLOGICAL Hx Neurological Disorder: No - HEENT Hx HEENT Problems: No - RENAL Hx Chronic Kidney Disease: No - ENDOCRINE/METABOLIC Hx Endocrine Disorders: Yes Hx Diabetes Mellitus Type 2: Yes - HEMATOLOGICAL/ONCOLOGICAL Hx Blood Disorders: No Hx AIDS: No Hx Human Immunodeficiency Virus (HIV): No - INTEGUMENTARY Hx Dermatological Problems: No - MUSCULOSKELETAL/RHEUMATOLOGICAL Hx Musculoskeletal Disorders: Yes Hx Arthritis: Yes Hx Falls: No - GASTROINTESTINAL Hx Gastrointestinal Disorders: Yes Hx Colitis: Yes - GENITOURINARY/GYNECOLOGICAL Hx Genitourinary Disorders: No - PSYCHIATRIC Hx Psychophysiologic Disorder: Yes Hx Anxiety: Yes Hx Depression: Yes Hx Substance Use: No - SURGICAL HISTORY Hx Surgeries: No - ANESTHESIA Hx Anesthesia: Yes Hx Anesthesia Reactions: No Hx Malignant Hyperthermia: No Meds Allergies/Adverse Reactions: Allergies Allergy/AdvReac Type Severity Reaction Status Date / Time No Known Allergies Allergy Verified 03/11/18 03:44 - Medications Medications: Current Medications Acetaminophen (Tylenol 325mg Tab) 650 mg PO Q4 PRN PRN Reason: Fever >100.4 F Last Admin: 03/11/18 20:15 Dose: 650 mg Alprazolam (Xanax) 2 mg PO BID@0900,2200 [facility] Last Admin: 03/14/18 09:30 Dose: 2 mg Aspirin (Aspirin Chewable) 81 mg PO DAILY [facility] Last Admin: 03/14/18 09:29 Dose: 81 mg Enalapril Maleate (Vasotec) 5 mg PO DAILY [facility] Last Admin: 03/14/18 09:28 Dose: 5 mg Metronidazole (Flagyl 500mg/100ml Ns) 100 mls @ 100 mls/hr IVPB Q8 [facility] PRN Reason: Protocol Last Admin: 03/14/18 09:00 Dose: 100 mls/hr Tobramycin Sulfate 60 mg/ (Sodium Chloride) 101.5 mls @ 100 mls/hr IV Q12H [facility] PRN Reason: Protocol Last Admin: 03/14/18 03:46 Dose: 100 mls/hr Meropenem 1 gm/ Sodium (Chloride) 100 mls @ 100 mls/hr IVPB Q8 [facility] PRN Reason: Protocol Insulin Human Regular (Humulin R) 0 units SC ACCU-CHECK [facility] PRN Reason: Protocol Last Admin: 03/13/18 22:24 Dose: Not Given Pravastatin Sodium (Pravachol) 40 mg PO HS [facility] Last Admin: 03/13/18 22:22 Dose: 40 mg Zolpidem Tartrate (Ambien) 5 mg PO HS PRN PRN Reason: Insomnia Last Admin: 03/13/18 22:25 Dose: 5 mg Physical Exam - Constitutional Appears: Non-toxic, No Acute Distress - Head Exam Head Exam: ATRAUMATIC, NORMAL INSPECTION - Eye Exam Eye Exam: EOMI, Normal appearance - Neck Exam Neck exam: Positive for: Normal Inspection - Respiratory Exam Respiratory Exam: Clear to Auscultation Bilateral, NORMAL BREATHING PATTERN. absent: Wheezes - Cardiovascular Exam Cardiovascular Exam: REGULAR RHYTHM, +S1, +S2 - GI/Abdominal Exam GI & Abdominal Exam: Normal Bowel Sounds, Soft, Tenderness. absent: Organomegaly - Rectal Exam Rectal Exam: Deferred - Extremities Exam Extremities exam: Positive for: normal inspection - Neurological Exam Neurological exam: Alert, CN II-XII Intact, Oriented x3 - Psychiatric Exam Psychiatric exam: Normal Affect, Normal Mood - Skin Skin Exam: Dry, Normal Color Results - Vital Signs Recent Vital Signs: Last Vital Signs Temp 97.4 F L 03/14/18 12:36 Pulse 67 03/14/18 12:36 Resp 20 03/14/18 12:36 BP 116/77 03/14/18 12:36 Pulse Ox 96 03/14/18 12:36 - Labs Result Diagrams: 03/14/18 05:30 03/14/18 05:30 Labs: Laboratory Results - last 24 hr 03/13/18 03/13/18 03/13/18 08:05 17:23 21:20 WBC RBC Hgb Hct MCV MCH MCHC RDW Plt Count Sodium Potassium Chloride Carbon Dioxide Anion Gap BUN Creatinine Est GFR ( Amer) Est GFR (Non-Af Amer) POC Glucose (mg/dL) 86 107 Random Glucose Calcium Total Bilirubin AST ALT Alkaline Phosphatase Total Protein Albumin Globulin Albumin/Globulin Ratio C. difficile Ag & Toxin Negative 03/14/18 03/14/18 03/14/18 05:30 05:30 05:45 WBC 8.3 RBC 4.62 Hgb 14.3 Hct 42.2 MCV 91.2 MCH 31.0 MCHC 34.0 RDW 14.9 H Plt Count 146 Sodium 141 Potassium 4.1 Chloride 109 H Carbon Dioxide 24 Anion Gap 12 BUN 9 Creatinine 0.7 L Est GFR ( Amer) > 60 Est GFR (Non-Af Amer) > 60 POC Glucose (mg/dL) 90 Random Glucose 98 Calcium 8.8 Total Bilirubin 0.4 AST 26 ALT 56 Alkaline Phosphatase 43 Total Protein 5.8 L Albumin 3.1 L Globulin 2.7 Albumin/Globulin Ratio 1.2 C. difficile Ag & Toxin Assessment & Plan - Assessment and Plan (Free Text) Assessment: 62M with hx DM presenting with abdominal pain, sepsis and found to have new liver lesion suspicious for abscess. #Liver lesion #Klebsiella Sepsis #Abdominal pain #DM #Enlarged prostate Plan: -CT findings note for new liver mass, consistent with liver abscess. Enlarged prostate -Continue Abx per ID, sensitivities. -Liver lesion is most likely an abscess due to Klebsiella in setting of DM. There is documented association between this condition and malignancy in the literature. -Recommend CXR for lobar pneumonia. Patient complains of new dyspnea. -Could consider draining (>2cm) if not improving with systemic Abx. Defer to ID. -r/o E. histolytica with serology -I will discuss with radiology on best follow up imaging for this patient. -Enlarged prostate can be followed up to r/o prostate cancer (Fmx) - Date & Time Date: 03/14/18 Time: 06:35
--- NOTE | 2018-03-14 15:25 | CP.PCM.PN ---
Subjective - Date & Time of Evaluation Date of Evaluation: 03/14/18 Time of Evaluation: 09:00 - Subjective Subjective: F/U Abdominal pain no Abdominal pain, no nausea, no vomiting, afebril Objective - Vital Signs/Intake and Output Vital Signs (last 24 hours): Temp Pulse Resp BP Pulse Ox 97.4 F L 67 20 116/77 96 03/14/18 12:36 03/14/18 12:36 03/14/18 12:36 03/14/18 12:36 03/14/18 12:36 - Medications Medications: Current Medications Acetaminophen (Tylenol 325mg Tab) 650 mg PO Q4 PRN PRN Reason: Fever >100.4 F Last Admin: 03/11/18 20:15 Dose: 650 mg Alprazolam (Xanax) 2 mg PO BID@0900,2200 [facility] Last Admin: 03/14/18 09:30 Dose: 2 mg Aspirin (Aspirin Chewable) 81 mg PO DAILY [facility] Last Admin: 03/14/18 09:29 Dose: 81 mg Enalapril Maleate (Vasotec) 5 mg PO DAILY [facility] Last Admin: 03/14/18 09:28 Dose: 5 mg Metronidazole (Flagyl 500mg/100ml Ns) 100 mls @ 100 mls/hr IVPB Q8 [facility] PRN Reason: Protocol Last Admin: 03/14/18 09:00 Dose: 100 mls/hr Tobramycin Sulfate 60 mg/ (Sodium Chloride) 101.5 mls @ 100 mls/hr IV Q12H [facility] PRN Reason: Protocol Last Admin: 03/14/18 03:46 Dose: 100 mls/hr Meropenem 1 gm/ Sodium (Chloride) 100 mls @ 100 mls/hr IVPB Q8 [facility] PRN Reason: Protocol Insulin Human Regular (Humulin R) 0 units SC ACCU-CHECK [facility] PRN Reason: Protocol Last Admin: 03/13/18 22:24 Dose: Not Given Pravastatin Sodium (Pravachol) 40 mg PO HS [facility] Last Admin: 03/13/18 22:22 Dose: 40 mg Zolpidem Tartrate (Ambien) 5 mg PO HS PRN PRN Reason: Insomnia Last Admin: 03/13/18 22:25 Dose: 5 mg - Labs Labs: 03/14/18 05:30 03/14/18 05:30 - Constitutional Appears: No Acute Distress - Head Exam Head Exam: NORMAL INSPECTION - Eye Exam Eye Exam: PERRL - ENT Exam ENT Exam: Normal Oropharynx - Neck Exam Neck Exam: Normal Inspection - Respiratory Exam Respiratory Exam: Clear to Ausculation Bilateral - Cardiovascular Exam Cardiovascular Exam: REGULAR RHYTHM - GI/Abdominal Exam GI & Abdominal Exam: Soft, Normal Bowel Sounds - Extremities Exam Extremities Exam: Normal Inspection - Back Exam Back Exam: NORMAL INSPECTION - Neurological Exam Neurological Exam: Alert, Awake, Oriented x3. absent: Motor Sensory Deficit - Psychiatric Exam Psychiatric exam: Normal Mood - Skin Skin Exam: Warm Assessment and Plan (1) Abdominal pain Status: Acute (2) Liver abscess Status: Acute (3) Positive blood culture Assessment & Plan: Klebsiella Status: Acute - Assessment and Plan (Free Text) Plan: Blood C-S Klebsiella, IR small abscess, no CT needle drainage, ID DC Unasyn, not sensitivity, Tx Tobramycin, Merren, Flagyl, GI consult appreciated
--- NOTE | 2018-03-14 15:28 | CARD ---
APPROVED REPORT Date of service: 03/14/2018 EXAM: Two-dimensional and M-mode echocardiogram with Doppler and color Doppler. Other Information Quality : GoodRhythm : NSR INDICATION Infection: Liver Abscess 2D DIMENSIONS IVSd1.17 (0.7-1.1cm)LVDd4.24 (3.9-5.9cm) LVOT Diameter2.25 (1.8-2.4cm)PWd1.00 (0.7-1.1cm) IVSs1.71 (0.8-1.2cm)LVDs2.38 (2.5-4.0cm) FS (%) 43.9 %PWs1.60 (0.8-1.2cm) M-Mode DIMENSIONS Left Atrium (MM)3.97 (2.5-4.0cm)IVSd1.21 (0.7-1.1cm) Aortic Root3.14 (2.2-3.7cm)LVDd4.38 (4.0-5.6cm) Aortic Cusp Exc.1.99 (1.5-2.0cm)PWd1.27 (0.7-1.1cm) IVSs1.65 cmFS (%) 42 % LVDs2.56 (2.0-3.8cm)PWs1.54 cm Mitral Valve MV E Llbizfvd32.0cm/sMV DECEL [id number] A Ufsgxgfe79.0cm/s MV XSM62kpD/A ratio0.8MVA (PHT)2.98cm2 TDI Lateral E' Peak V7.17cm/sMedial E' Peak V6.36cm/sE/Lateral E'6.4 E/Medial E'7.2 Pulmonary Valve PV Peak Hgjyjnjr62.4cm/s Tricuspid Valve TR Peak Gftcajez826of/sRAP LDAXSFIH70uwStON Peak Gr.19mmHg UKMW51xyQm LEFT VENTRICLE The left ventricle is normal size. There is mild concentric left ventricular hypertrophy. The left ventricular function is normal. The left ventricular ejection fraction is within the normal range. LVEF 70% There is normal LV segmental wall motion. The left ventricular diastolic function is normal. No left ventricle thrombus noted on this study. There is no ventricular septal defect visualized. There is no left ventricular aneurysm. There is no mass noted in the left ventricle. RIGHT VENTRICLE The right ventricle is normal size. The right ventricular systolic function is normal. ATRIA The left atrium is mildly dilated. The right atrium size is normal. AORTIC VALVE The aortic valve is normal in structure. No aortic regurgitation is present. There is no aortic valvular stenosis. There is no aortic valvular vegetation. MITRAL VALVE The mitral valve is normal in structure. There is no evidence of mitral valve prolapse. There is no mitral valve stenosis. There is no mitral valve regurgitation noted. TRICUSPID VALVE The tricuspid valve is normal in structure. There is mild tricuspid regurgitation. PULMONIC VALVE The pulmonary valve is normal in structure. There is no pulmonic valvular regurgitation. GREAT VESSELS The aortic root is normal in size. The IVC is normal in size and collapses >50% with inspiration. PERICARDIAL EFFUSION The pericardium appears normal. <Conclusion> The left ventricle is normal size. There is mild concentric left ventricular hypertrophy. The left ventricular function is normal. The left ventricular ejection fraction is within the normal range. LVEF 70% The left atrium is mildly dilated. The mitral valve is normal in structure. The aortic valve is normal in structure.
[2018-03-14] MEDS: Meropenem 1 GM in Sodium Chloride 0.9% 100 ML IVPB SCH (16:35)
[2018-03-14] MEDS: Pravastatin Sodium 40 MG TAB PO SCH (22:08)
[2018-03-15] MEDS: Meropenem 1 GM in Sodium Chloride 0.9% 100 ML IVPB SCH ×3 (00:16→18:00)
[2018-03-15] MEDS: metroNIDAZOLE 500mg/100ml NS 100 ML IVPB SCH ×3 (00:17→18:00)
[2018-03-15] MEDS: Tobramycin inj 60 MG in Sodium Chloride 0.9% 100 ML IV SCH ×2 (03:12→16:00)
[2018-03-15] MEDS: Insulin Regular 100 units/ml SC SCH ×4 (08:00→22:05)
--- NOTE | 2018-03-15 10:40 | CP.PCM.PN ---
Subjective - Date & Time of Evaluation Date of Evaluation: 03/15/18 Time of Evaluation: 10:38 - Subjective Subjective: GI Fellow PGY4, Progress note. Patient is doing well. Denies abdominal pain, fever. Admits BM. 12pt ROS completed and negative except for above. Objective - Vital Signs/Intake and Output Vital Signs (last 24 hours): Temp Pulse Resp BP Pulse Ox 97.9 F 102 H 20 102/74 96 03/15/18 08:00 03/15/18 08:00 03/15/18 08:00 03/15/18 08:00 03/15/18 08:00 - Medications Medications: Current Medications Acetaminophen (Tylenol 325mg Tab) 650 mg PO Q4 PRN PRN Reason: Fever >100.4 F Last Admin: 03/11/18 20:15 Dose: 650 mg Alprazolam (Xanax) 2 mg PO BID@0900,2200 [facility] Last Admin: 03/15/18 09:11 Dose: 2 mg Aspirin (Aspirin Chewable) 81 mg PO DAILY [facility] Last Admin: 03/15/18 09:03 Dose: 81 mg Enalapril Maleate (Vasotec) 5 mg PO DAILY [facility] Last Admin: 03/15/18 09:04 Dose: 5 mg Metronidazole (Flagyl 500mg/100ml Ns) 100 mls @ 100 mls/hr IVPB Q8 [facility] PRN Reason: Protocol Last Admin: 03/15/18 09:00 Dose: 100 mls/hr Tobramycin Sulfate 60 mg/ (Sodium Chloride) 101.5 mls @ 100 mls/hr IV Q12H [facility] PRN Reason: Protocol Last Admin: 03/15/18 03:12 Dose: 100 mls/hr Meropenem 1 gm/ Sodium (Chloride) 100 mls @ 100 mls/hr IVPB Q8 [facility] PRN Reason: Protocol Last Admin: 03/15/18 09:00 Dose: 100 mls/hr Insulin Human Regular (Humulin R) 0 units SC ACCU-CHECK [facility] PRN Reason: Protocol Last Admin: 03/15/18 08:00 Dose: Not Given Pravastatin Sodium (Pravachol) 40 mg PO HS [facility] Last Admin: 03/14/18 22:08 Dose: 40 mg Zolpidem Tartrate (Ambien) 5 mg PO HS PRN PRN Reason: Insomnia Last Admin: 03/14/18 22:07 Dose: 5 mg - Labs Labs: 03/14/18 05:30 03/14/18 05:30 - Constitutional Appears: Well - Head Exam Head Exam: ATRAUMATIC, NORMAL INSPECTION, NORMOCEPHALIC - Eye Exam Eye Exam: EOMI, Normal appearance, PERRL - ENT Exam ENT Exam: Mucous Membranes Moist, Normal Exam - Respiratory Exam Respiratory Exam: Clear to Ausculation Bilateral, NORMAL BREATHING PATTERN - Cardiovascular Exam Cardiovascular Exam: REGULAR RHYTHM, +S1, +S2. absent: Murmur - GI/Abdominal Exam GI & Abdominal Exam: Soft, Normal Bowel Sounds. absent: Tenderness - Extremities Exam Extremities Exam: Full ROM, Normal Capillary Refill, Normal Inspection. absent : Joint Swelling, Pedal Edema - Neurological Exam Neurological Exam: Alert, Awake, CN II-XII Intact, Normal Gait, Oriented x3 - Psychiatric Exam Psychiatric exam: Normal Affect, Normal Mood - Skin Skin Exam: Dry, Intact, Normal Color, Warm Assessment and Plan - Assessment and Plan (Free Text) Assessment: 62M with hx DM presenting with abdominal pain, sepsis and found to have new liver lesion suspicious for abscess. #Liver lesion #Klebsiella Sepsis #Abdominal pain #DM #Enlarged prostate Plan: -CT findings note for new liver mass, consistent with liver abscess. Enlarged prostate -Continue Abx per ID, sensitivities. -Liver lesion is most likely an abscess due to Klebsiella in setting of DM. There is documented association between this condition and malignancy in the literature. -Could consider draining (>2cm) if not improving with systemic Abx. Defer to ID. -r/o E. histolytica with serology -Enlarged prostate can be followed up to r/o prostate cancer (FmHx). -I discussed case with radiologist who recommended outpt Abdominal CT with and without contrast (no need for tripple phase) to follow-up presumed abscess for resolution. This could be done in 4-6 weeks. This could be followed up again in 6 months with sonogram to verify no growth. -Please note: Abdominal u/s is not recommended for the initial repeat study as the lesion of interest was NOT seen on inpatient u/s.
--- NOTE | 2018-03-15 10:45 | RAD ---
HISTORY: COMPARISON: 08/23/2017. TECHNIQUE: Chest PA and lateral FINDINGS: LINES AND TUBES: None. LUNG AND PLEURA: The lungs are well inflated and clear. No pleural effusion or pneumothorax. HEART AND MEDIASTINUM: The heart is not enlarged. The hilar and mediastinal contours are within normal limits. SKELETAL STRUCTURES: The bony structures are within normal limits for the patient's age. VISUALIZED UPPER ABDOMEN: Normal. OTHER FINDINGS: None. IMPRESSION: No active pulmonary disease.
[2018-03-15] MEDS ORDERED: Iohexol 240 (50 ml) PO ONE (13:16)
--- NOTE | 2018-03-15 13:38 | PQF ---
PROVIDER RESPONSE TEXT: REVIEWER QUERY TEXT: Rule Out Sepsis Clarification Sepsis is documented in the Medical Record by the ER . Please clarify AFTER WORKUP whether: -- Patient has sepsis - Please document confirmed, suspected or probable causative organism - Please document confirmed, suspected or probable localized infection - Please clarify if sepsis is related to a device - Please clarify if sepsis was present on admission -- Sepsis was ruled out (include corresponding diagnosis for patient?s clinical picture and treatment ) -- Patient had sepsis which is resolved -- Other, please specify The patient's Clinical Indicators include: Patient is admitted with abdominal pain, fever, chills and intermitted diarrhea. ER MD: Patient returned from [place] on March 03. Pain in abdomen since then. DX: Sepsis, Liver abscess. ID short note: Has grown gram negative rods in blood ,no ID yet. WBC 13.3 with a L shift, lactate 1.4 TEMP: 98.2, 98.5, 103 x 2, 102.4 x 2, 102.8 x 2, 98 HR 130, 113, 84, 85, 127, 106, 112, 108 x 2, 118 BP 100/66, 107/63, 163/77, 160/54, 107/76 on 03/12: 98/61, / Treated with triple IVAB Query created by: Darlene Felix on 03/13/2018 11:32 AM PROVIDER RESPONSE TEXT: Klebsiella Sepsis- positive blood culture. REVIEWER QUERY TEXT: Documentation Clarification Please clarify if the patient has Klebsiella Sepsis or Positive Blood Cultures for Klebsiella. Differ ent ICD-10 coding. Your help is requested in clarifying the following clinical documentation, if you can please further specify in the medical record and discharge summary. The patient's Clinical Indicators include: Admitted with generalized abdominal pain, intermittent diarrhea , belching/flatulence, fever and chil ls. Diagnosis includes liver abscess. ER: Sepsis ID: Consult dictated but not in the EMR. Progress note: Klebsiella grew from Blood Cultures. IVAB adj usted GI: Klebsiella Sepsis TEMP: 98.2, 98.5, 103 x 2, 102.4 x 2, 102.8 x 2, 98 HR 130, 113, 84, 85, 127, 106, 112, 108 x 2, 118 BP 100/66, 107/63, 163/77, 160/54, 107/76 on 03/12: 98/61, 95/61 WBC 13.3 with a L shift , lactate 1.4 Query created by: Darlene Felix on 03/15/2018 11:25 AM Electronically signed by: Duc Mills MD 03/15/2018 1:35 PM
--- NOTE | 2018-03-15 15:13 | CP.PCM.PN ---
Subjective - Date & Time of Evaluation Date of Evaluation: 03/15/18 Time of Evaluation: 13:40 - Subjective Subjective: F/U Abdominal pain. No A/D, as per nurse, Pt tolerated breakfast well, no nausea or vomiting or abdominal pain. Objective - Vital Signs/Intake and Output Vital Signs (last 24 hours): Temp Pulse Resp BP Pulse Ox 98.2 F 68 18 98/65 L 98 03/15/18 12:43 03/15/18 12:43 03/15/18 12:43 03/15/18 12:43 03/15/18 12:43 - Medications Medications: Current Medications Acetaminophen (Tylenol 325mg Tab) 650 mg PO Q4 PRN PRN Reason: Fever >100.4 F Last Admin: 03/11/18 20:15 Dose: 650 mg Alprazolam (Xanax) 2 mg PO BID@0900,2200 [facility] Last Admin: 03/15/18 09:11 Dose: 2 mg Aspirin (Aspirin Chewable) 81 mg PO DAILY [facility] Last Admin: 03/15/18 09:03 Dose: 81 mg Enalapril Maleate (Vasotec) 5 mg PO DAILY [facility] Last Admin: 03/15/18 09:04 Dose: 5 mg Metronidazole (Flagyl 500mg/100ml Ns) 100 mls @ 100 mls/hr IVPB Q8 [facility] PRN Reason: Protocol Last Admin: 03/15/18 09:00 Dose: 100 mls/hr Tobramycin Sulfate 60 mg/ (Sodium Chloride) 101.5 mls @ 100 mls/hr IV Q12H [facility] PRN Reason: Protocol Last Admin: 03/15/18 03:12 Dose: 100 mls/hr Meropenem 1 gm/ Sodium (Chloride) 100 mls @ 100 mls/hr IVPB Q8 [facility] PRN Reason: Protocol Last Admin: 03/15/18 09:00 Dose: 100 mls/hr Insulin Human Regular (Humulin R) 0 units SC ACCU-CHECK [facility] PRN Reason: Protocol Last Admin: 03/15/18 08:00 Dose: Not Given Pravastatin Sodium (Pravachol) 40 mg PO HS [facility] Last Admin: 03/14/18 22:08 Dose: 40 mg Zolpidem Tartrate (Ambien) 5 mg PO HS PRN PRN Reason: Insomnia Last Admin: 03/14/18 22:07 Dose: 5 mg - Labs Labs: 03/14/18 05:30 03/14/18 05:30 - Constitutional Appears: No Acute Distress - Head Exam Head Exam: NORMAL INSPECTION - Eye Exam Eye Exam: PERRL - ENT Exam ENT Exam: Normal Exam - Neck Exam Neck Exam: Normal Inspection - Respiratory Exam Respiratory Exam: Clear to Ausculation Bilateral - Cardiovascular Exam Cardiovascular Exam: REGULAR RHYTHM - GI/Abdominal Exam GI & Abdominal Exam: Soft, Normal Bowel Sounds - Extremities Exam Extremities Exam: Normal Inspection - Back Exam Back Exam: NORMAL INSPECTION - Neurological Exam Neurological Exam: Alert, Awake, Oriented x3. absent: Motor Sensory Deficit - Psychiatric Exam Psychiatric exam: Normal Mood - Skin Skin Exam: Warm Assessment and Plan (1) Abdominal pain Status: Acute (2) Liver abscess Status: Acute (3) Positive blood culture Status: Acute (4) Sepsis Status: Acute - Assessment and Plan (Free Text) Plan: CT Chest today unremarkable, continue Tobramycin, Merren, Flagyl and rest of Tx.
--- NOTE | 2018-03-15 15:29 | CT ---
Date of service: 03/15/2018 PROCEDURE: CT Chest without contrast HISTORY: r/o mass COMPARISON: March 15, 2018. Two view chest. TECHNIQUE: Contiguous axial images were obtained through the chest without intravenous contrast enhancement. Sagittal and coronal reconstructions were performed. Radiation dose (DLP): 359.73 mGy-cm. This CT exam was performed using one or more of the following dose reduction techniques: Automated exposure control, adjustment of the mA and/or kV according to patient size, and/or use of iterative reconstruction technique. FINDINGS: LUNGS: Clear lungs. Visualized airway clear. MEDIASTINUM: Unremarkable thoracic aorta. No aneurysm. Normal sized heart. Main pulmonary artery unremarkable. No vascular congestion. No lymphadenopathy. PLEURA: No pleural fluid. No pneumothorax. BONES: No fracture. No destructive lesion. UPPER ABDOMEN: Grossly unremarkable. Incidental left renal cyst better visualized on prior abdominal CT 03/11/2018. OTHER FINDINGS: None. IMPRESSION: Unremarkable non-contrast enhanced CT of the chest.
[2018-03-15] MEDS: Pravastatin Sodium 40 MG TAB PO SCH (22:05)
[2018-03-16] MEDS: Meropenem 1 GM in Sodium Chloride 0.9% 100 ML IVPB SCH ×3 (00:47→16:52)
[2018-03-16] MEDS: metroNIDAZOLE 500mg/100ml NS 100 ML IVPB SCH ×3 (01:46→16:43)
[2018-03-16] MEDS: Tobramycin inj 60 MG in Sodium Chloride 0.9% 100 ML IV SCH ×2 (05:02→16:42)
[2018-03-16] MEDS ORDERED: Iohexol 240 (50 ml) PO ONE (06:00)
[2018-03-16 06:29] LABS: HEMOGLOBIN 16.8 g/dL (12.0-18.0); MEAN CELL VOLUME 91.3 fl (80.0-94.0); MEAN CORPUSCULAR HEMOGLOBIN 30.5 pg (27.0-31.0); MEAN CORPUSCULAR HGB CONC 33.4 g/dL (33.0-37.0); RBC 5.5 Mil/uL (4.40-5.90); RED CELL DISTRIBUTION WIDTH 14.9 % (11.5-14.5); WHITE BLOOD COUNT 7.7 K/uL (4.8-10.8)
[2018-03-16 07:08] LABS: BLOOD UREA NITROGEN 13 mg/dl (9-20); CALCIUM 9.2 mg/dL (8.4-10.2); GFR AFRICAN-AMERICAN > 60; GFR NON-AFRICAN AMERICAN > 60
--- NOTE | 2018-03-16 09:03 | CP.PCM.PN ---
<Waqas Bradley - Last Filed: 03/16/18 19:05> Subjective - Date & Time of Evaluation Date of Evaluation: 03/16/18 Time of Evaluation: 09:01 - Subjective Subjective: GI Fellow PGY4, Progress note. No acute overnight events. Admits having solid BM. Denies diarrhea. Eating well. No abdominal pain. Objective - Vital Signs/Intake and Output Vital Signs (last 24 hours): Temp Pulse Resp BP Pulse Ox 98.1 F 75 20 105/68 98 03/16/18 08:22 03/16/18 08:22 03/16/18 08:22 03/16/18 08:22 03/16/18 08:22 - Medications Medications: Current Medications Acetaminophen (Tylenol 325mg Tab) 650 mg PO Q4 PRN PRN Reason: Fever >100.4 F Last Admin: 03/11/18 20:15 Dose: 650 mg Alprazolam (Xanax) 2 mg PO BID@0900,2200 [facility] Last Admin: 03/15/18 22:05 Dose: 2 mg Aspirin (Aspirin Chewable) 81 mg PO DAILY [facility] Last Admin: 03/15/18 09:03 Dose: 81 mg Enalapril Maleate (Vasotec) 5 mg PO DAILY [facility] Last Admin: 03/15/18 09:04 Dose: 5 mg Metronidazole (Flagyl 500mg/100ml Ns) 100 mls @ 100 mls/hr IVPB Q8 [facility] PRN Reason: Protocol Last Admin: 03/16/18 01:46 Dose: 100 mls/hr Tobramycin Sulfate 60 mg/ (Sodium Chloride) 101.5 mls @ 100 mls/hr IV Q12H [facility] PRN Reason: Protocol Last Admin: 03/16/18 05:02 Dose: 100 mls/hr Meropenem 1 gm/ Sodium (Chloride) 100 mls @ 100 mls/hr IVPB Q8 [facility] PRN Reason: Protocol Last Admin: 03/16/18 00:47 Dose: 100 mls/hr Insulin Human Regular (Humulin R) 0 units SC ACCU-CHECK [facility] PRN Reason: Protocol Last Admin: 03/15/18 22:05 Dose: Not Given Lactobacillus Acidophilus (Bacid Acidophilus) 1 cap PO BID [facility] Pravastatin Sodium (Pravachol) 40 mg PO [facility] Last Admin: 03/15/18 22:05 Dose: 40 mg Zolpidem Tartrate (Ambien) 5 mg PO HS PRN PRN Reason: Insomnia Last Admin: 03/15/18 23:45 Dose: 5 mg - Labs Labs: 03/16/18 06:00 03/16/18 06:00 - Constitutional Appears: Well - Head Exam Head Exam: ATRAUMATIC, NORMAL INSPECTION, NORMOCEPHALIC - Eye Exam Eye Exam: EOMI, Normal appearance, PERRL - ENT Exam ENT Exam: Mucous Membranes Moist, Normal Exam - Respiratory Exam Respiratory Exam: Clear to Ausculation Bilateral, NORMAL BREATHING PATTERN - Cardiovascular Exam Cardiovascular Exam: REGULAR RHYTHM, +S1, +S2. absent: Murmur - GI/Abdominal Exam GI & Abdominal Exam: Soft, Normal Bowel Sounds. absent: Tenderness - Extremities Exam Extremities Exam: Full ROM, Normal Capillary Refill, Normal Inspection. absent : Joint Swelling, Pedal Edema - Neurological Exam Neurological Exam: Alert, Awake, CN II-XII Intact, Normal Gait, Oriented x3 - Psychiatric Exam Psychiatric exam: Normal Affect, Normal Mood - Skin Skin Exam: Dry, Intact, Normal Color, Warm Assessment and Plan - Assessment and Plan (Free Text) Assessment: 62M with hx DM presenting with abdominal pain, sepsis and found to have new liver lesion suspicious for abscess. #Liver lesion #Klebsiella Sepsis #Abdominal pain #DM #Enlarged prostate Plan: -CT findings note for new liver mass, consistent with liver abscess. Enlarged prostate -Continue Abx per ID, sensitivities. -Liver lesion is most likely an abscess due to Klebsiella in setting of DM. There is documented association between this condition and malignancy in the literature. -Could consider draining (>2cm) if not improving with systemic Abx. Defer to ID. -r/o E. histolytica with serology -I discussed case with radiologist who recommended outpt Abdominal CT with and without contrast (no need for tripple phase) to follow-up presumed abscess for resolution. This could be done in 4-6 weeks. This could be followed up again in 6 months with sonogram to verify no growth. -Please note: Abdominal u/s is not recommended for the initial repeat study as the lesion of interest was NOT seen on inpatient u/s. <Van Florentino - Last Filed: 03/16/18 20:00> Objective - Vital Signs/Intake and Output Vital Signs (last 24 hours): Temp Pulse Resp BP Pulse Ox 98.6 F 77 20 117/80 98 03/16/18 19:15 03/16/18 19:15 03/16/18 19:15 03/16/18 19:15 03/16/18 19:15 - Medications Medications: Current Medications Acetaminophen (Tylenol 325mg Tab) 650 mg PO Q4 PRN PRN Reason: Fever >100.4 F Last Admin: 03/11/18 20:15 Dose: 650 mg Alprazolam (Xanax) 2 mg PO BID@0900,2200 [facility] Last Admin: 03/16/18 09:45 Dose: 2 mg Aspirin (Aspirin Chewable) 81 mg PO DAILY [facility] Last Admin: 03/16/18 09:45 Dose: 81 mg Enalapril Maleate (Vasotec) 5 mg PO DAILY [facility] Last Admin: 03/16/18 09:46 Dose: 5 mg Metronidazole (Flagyl 500mg/100ml Ns) 100 mls @ 100 mls/hr IVPB Q8 [facility] PRN Reason: Protocol Last Admin: 03/16/18 16:43 Dose: 100 mls/hr Tobramycin Sulfate 60 mg/ (Sodium Chloride) 101.5 mls @ 100 mls/hr IV Q12H [facility] PRN Reason: Protocol Last Admin: 03/16/18 16:42 Dose: 100 mls/hr Meropenem 1 gm/ Sodium (Chloride) 100 mls @ 100 mls/hr IVPB Q8 [facility] PRN Reason: Protocol Last Admin: 03/16/18 16:52 Dose: 100 mls/hr Insulin Human Regular (Humulin R) 0 units SC ACCU-CHECK [facility] PRN Reason: Protocol Last Admin: 03/16/18 12:35 Dose: 1 unit Lactobacillus Acidophilus (Bacid Acidophilus) 1 cap PO BID [facility] Last Admin: 03/16/18 16:52 Dose: 1 cap Pravastatin Sodium (Pravachol) 40 mg PO HS [facility] Last Admin: 03/15/18 22:05 Dose: 40 mg Zolpidem Tartrate (Ambien) 5 mg PO HS PRN PRN Reason: Insomnia Last Admin: 03/15/18 23:45 Dose: 5 mg - Labs Labs: 03/16/18 06:00 03/16/18 06:00 Assessment and Plan - Assessment and Plan (Free Text) Plan: Patient examined and discussed with GI fellow. Agree wth assessment. Clinically better. Imaging may lag behind clinical response.
[2018-03-16] MEDS: Insulin Regular 100 units/ml SC SCH ×4 (09:25→22:22)
[2018-03-16] MEDS: Lactobacillus Acidophilus 500 MU Cap PO SCH ×2 (09:45→16:52)
--- NOTE | 2018-03-16 11:29 | CT ---
Date of service: 03/16/2018 PROCEDURE: CT Abdomen and Pelvis with contrast HISTORY: f/u abscess COMPARISON: 03/11/2018 abdominal ultrasound. 04/26/2016 and 03/11/2018 CT abdomen and pelvis. TECHNIQUE: Oral contrast only. Radiation dose: Total exam DLP = 558.17 mGy-cm. This CT exam was performed using one or more of the following dose reduction techniques: Automated exposure control, adjustment of the mA and/or kV according to patient size, and/or use of iterative reconstruction technique. FINDINGS: LOWER THORAX: Unremarkable. LIVER: Confirmation of low-attenuation ill-defined area right hepatic lobe laterally. The findings are unchanged compared to the previous examination. GALLBLADDER AND BILE DUCTS: Unremarkable. PANCREAS: Unremarkable. No gross lesion or ductal dilatation. SPLEEN: Unremarkable. ADRENALS: Unremarkable. No mass. KIDNEYS AND URETERS: Unremarkable. No hydronephrosis. No solid mass. Incidental finding(s): 2 mm calculus lower pole left kidney. No significant interval change compared to the prior examination(s). VASCULATURE: Unremarkable. No aortic aneurysm. BOWEL: Diverticulosis without an acute inflammatory component or other associated pathologic process. APPENDIX: Normal appendix. PERITONEUM: Unremarkable. No free fluid. No free air. LYMPH NODES: Unremarkable. No enlarged lymph nodes. BLADDER: Unremarkable. REPRODUCTIVE: Mildly enlarged prostate 5 x 5.4 cm. BONES: No acute fracture. OTHER FINDINGS: None. IMPRESSION: Stable findings in the right hepatic lobe compared to the prior study 03/15/2018. Findings however were not apparent on 04/26/2016.Additional benign and/or incidental findings described above.
[2018-03-16] MEDS ORDERED: Sodium Chloride 0.9% 50 ML IV ONE (12:53)
[2018-03-16] MEDS ORDERED: Gadodiamide 287 MG/ML VIAL (15ML) IV ONE (12:53)
--- NOTE | 2018-03-16 15:46 | MRI ---
Date of service: 03/16/2018 PROCEDURE: MRI Abdomen with and without contrast HISTORY: Right lobe liver mass COMPARISON: CT abdomen/pelvis 03/16/2018 and 03/11/2018. TECHNIQUE: Multisequence, multiplanar MR images of the abdomen with and without gadolinium contrast enhancement. FINDINGS: LIVER: Normal size, contour and signal intensity. In the medial segment left hepatic lobe there is what is likely a cyst measuring 1.9 cm in greatest dimension. This is seen on CT examination of 04/26/2016 without interval change in size and configuration. In the lateral segment of the left hepatic lobe, just beneath the dome of the diaphragm, there is a crescentic cyst measuring 1.5 x 2.2 cm, again unchanged when compared to CT examination of 04/26/2016. In the inferior right hepatic lobe there is an irregularly-shaped area of mildly increased T2 signal, mildly hypo intense on T1 weighted images. Diffusion restriction is demonstrated in conjunction with this lesion. The lesion abuts the hepatic capsule laterally. It enhances in a heterogeneous somewhat serpiginous fashion, with intermixed areas of persistent low signal. It measures roughly 2.2 x 4.0 by 2.8 cm. The enhancement is late. There is no early enhancing hepatic lesion. There is no other hepatic mass identified. Differential diagnosis for this inferior right hepatic lobe mass includes phlegmon/abscess or neoplasm such as hepatocellular malignancy. Solitary metastasis is less likely. Please correlate with clinical evaluation and laboratory evaluation. GALLBLADDER: Partially contracted. No evidence of cholelithiasis. SPLEEN: Unremarkable. PANCREAS: Unremarkable. ADRENALS: Unremarkable. KIDNEYS: Left upper pole renal cortical cyst, 4.3 cm greatest dimension. Essentially unchanged from 04/26/2016. AORTA: No aneurysm. ASCITES: None. PERITONEUM: Unremarkable. LYMPH NODES: Unremarkable. OTHER FINDINGS: None. IMPRESSION: Two cysts in the left hepatic lobe. Ill-defined area of abnormal signal in the inferior right hepatic lobe showing late serpiginous heterogeneous enhancement following gadolinium administration. The appearance is not specific for a particular diagnosis. This may represent a hepatic cellular malignancy. In the appropriate clinical setting, this could be a phlegmon/early abscess. Left renal cortical cyst. No additional abnormality.
--- NOTE | 2018-03-16 16:22 | CP.PCM.PN ---
Subjective - Date & Time of Evaluation Date of Evaluation: 03/16/18 Time of Evaluation: 11:50 - Subjective Subjective: F/U Abdominal pain. N A/D, no abdominal pain, no diarrhea, eating well. Objective - Vital Signs/Intake and Output Vital Signs (last 24 hours): Temp Pulse Resp BP Pulse Ox 97.8 F 70 20 124/91 H 100 03/16/18 15:37 03/16/18 15:37 03/16/18 15:37 03/16/18 15:37 03/16/18 15:37 - Medications Medications: Current Medications Acetaminophen (Tylenol 325mg Tab) 650 mg PO Q4 PRN PRN Reason: Fever >100.4 F Last Admin: 03/11/18 20:15 Dose: 650 mg Alprazolam (Xanax) 2 mg PO BID@0900,2200 [facility] Last Admin: 03/16/18 09:45 Dose: 2 mg Aspirin (Aspirin Chewable) 81 mg PO DAILY [facility] Last Admin: 03/16/18 09:45 Dose: 81 mg Enalapril Maleate (Vasotec) 5 mg PO DAILY [facility] Last Admin: 03/16/18 09:46 Dose: 5 mg Metronidazole (Flagyl 500mg/100ml Ns) 100 mls @ 100 mls/hr IVPB Q8 [facility] PRN Reason: Protocol Last Admin: 03/16/18 09:26 Dose: 100 mls/hr Tobramycin Sulfate 60 mg/ (Sodium Chloride) 101.5 mls @ 100 mls/hr IV Q12H [facility] PRN Reason: Protocol Last Admin: 03/16/18 05:02 Dose: 100 mls/hr Meropenem 1 gm/ Sodium (Chloride) 100 mls @ 100 mls/hr IVPB Q8 [facility] PRN Reason: Protocol Last Admin: 03/16/18 09:24 Dose: 100 mls/hr Insulin Human Regular (Humulin R) 0 units SC ACCU-CHECK [facility] PRN Reason: Protocol Last Admin: 03/16/18 12:35 Dose: 1 unit Lactobacillus Acidophilus (Bacid Acidophilus) 1 cap PO BID [facility] Last Admin: 03/16/18 09:45 Dose: 1 cap Pravastatin Sodium (Pravachol) 40 mg PO HS [facility] Last Admin: 03/15/18 22:05 Dose: 40 mg Zolpidem Tartrate (Ambien) 5 mg PO HS PRN PRN Reason: Insomnia Last Admin: 03/15/18 23:45 Dose: 5 mg - Labs Labs: 03/16/18 06:00 03/16/18 06:00 - Constitutional Appears: No Acute Distress - Head Exam Head Exam: NORMAL INSPECTION - Eye Exam Eye Exam: PERRL - ENT Exam ENT Exam: Normal Exam - Neck Exam Neck Exam: Normal Inspection - Respiratory Exam Respiratory Exam: Clear to Ausculation Bilateral - Cardiovascular Exam Cardiovascular Exam: REGULAR RHYTHM - GI/Abdominal Exam GI & Abdominal Exam: Soft, Normal Bowel Sounds - Extremities Exam Extremities Exam: Normal Inspection - Back Exam Back Exam: NORMAL INSPECTION - Neurological Exam Neurological Exam: Alert, Awake, Oriented x3. absent: Motor Sensory Deficit - Psychiatric Exam Psychiatric exam: Normal Mood - Skin Skin Exam: Normal Color, Warm Assessment and Plan (1) Abdominal pain Status: Acute (2) Liver abscess Status: Acute (3) Positive blood culture Status: Acute (4) Sepsis Status: Acute - Assessment and Plan (Free Text) Plan: F/U CT Abdomen report. For abdomen MRI today, Continue Flagyl, Merren, Tobramycin and rest of Tx.
[2018-03-16] MEDS: Pravastatin Sodium 40 MG TAB PO SCH (22:21)
[2018-03-17] MEDS: metroNIDAZOLE 500mg/100ml NS 100 ML IVPB SCH ×2 (00:37→08:41)
[2018-03-17] MEDS: Meropenem 1 GM in Sodium Chloride 0.9% 100 ML IVPB SCH ×2 (00:38→08:43)
[2018-03-17] MEDS: Tobramycin inj 60 MG in Sodium Chloride 0.9% 100 ML IV SCH (02:48)
--- NOTE | 2018-03-17 08:00 | CP.PCM.PN ---
Subjective - Date & Time of Evaluation Date of Evaluation: 03/17/18 Time of Evaluation: 07:58 - Subjective Subjective: GI Fellow PGY4, Progress note. Patient doing well. CT abd and MRI abd yesterday noted. Patient is up, walking around, feeling well, asking when can he go home. Objective - Vital Signs/Intake and Output Vital Signs (last 24 hours): Temp Pulse Resp BP Pulse Ox 97.5 F L 71 18 104/64 97 03/17/18 04:21 03/17/18 04:21 03/17/18 04:21 03/17/18 04:21 03/17/18 04:21 - Medications Medications: Current Medications Acetaminophen (Tylenol 325mg Tab) 650 mg PO Q4 PRN PRN Reason: Fever >100.4 F Last Admin: 03/11/18 20:15 Dose: 650 mg Alprazolam (Xanax) 2 mg PO BID@0900,2200 [facility] Last Admin: 03/16/18 22:21 Dose: 2 mg Aspirin (Aspirin Chewable) 81 mg PO DAILY [facility] Last Admin: 03/16/18 09:45 Dose: 81 mg Enalapril Maleate (Vasotec) 5 mg PO DAILY [facility] Last Admin: 03/16/18 09:46 Dose: 5 mg Metronidazole (Flagyl 500mg/100ml Ns) 100 mls @ 100 mls/hr IVPB Q8 [facility] PRN Reason: Protocol Last Admin: 03/17/18 00:37 Dose: 100 mls/hr Tobramycin Sulfate 60 mg/ (Sodium Chloride) 101.5 mls @ 100 mls/hr IV Q12H [facility] PRN Reason: Protocol Last Admin: 03/17/18 02:48 Dose: 100 mls/hr Meropenem 1 gm/ Sodium (Chloride) 100 mls @ 100 mls/hr IVPB Q8 [facility] PRN Reason: Protocol Last Admin: 03/17/18 00:38 Dose: 100 mls/hr Insulin Human Regular (Humulin R) 0 units SC ACCU-CHECK [facility] PRN Reason: Protocol Last Admin: 03/16/18 22:22 Dose: Not Given Lactobacillus Acidophilus (Bacid Acidophilus) 1 cap PO BID [facility] Last Admin: 03/16/18 16:52 Dose: 1 cap Pravastatin Sodium (Pravachol) 40 mg PO HS [facility] Last Admin: 03/16/18 22:21 Dose: 40 mg Zolpidem Tartrate (Ambien) 5 mg PO HS PRN PRN Reason: Insomnia Last Admin: 03/16/18 22:21 Dose: 5 mg - Labs Labs: 03/16/18 06:00 03/16/18 06:00 - Constitutional Appears: Well, No Acute Distress - Head Exam Head Exam: ATRAUMATIC, NORMAL INSPECTION, NORMOCEPHALIC - Eye Exam Eye Exam: EOMI, Normal appearance, PERRL - Respiratory Exam Respiratory Exam: Clear to Ausculation Bilateral, NORMAL BREATHING PATTERN - Cardiovascular Exam Cardiovascular Exam: REGULAR RHYTHM, +S1, +S2. absent: Murmur - GI/Abdominal Exam GI & Abdominal Exam: Soft, Normal Bowel Sounds. absent: Tenderness - Extremities Exam Extremities Exam: Full ROM, Normal Capillary Refill, Normal Inspection. absent : Joint Swelling, Pedal Edema - Neurological Exam Neurological Exam: Alert, Awake, CN II-XII Intact, Normal Gait, Oriented x3 - Psychiatric Exam Psychiatric exam: Normal Affect, Normal Mood - Skin Skin Exam: Dry, Intact, Normal Color, Warm Assessment and Plan - Assessment and Plan (Free Text) Assessment: 62M with hx DM presenting with abdominal pain, sepsis and found to have new liver lesion suspicious for abscess. #Liver lesion #Klebsiella Sepsis #Abdominal pain #DM #Enlarged prostate Plan: -CT findings note for new liver mass, consistent with liver abscess. Enlarged prostate -Continue Abx per ID, sensitivities. -Liver lesion is most likely an abscess due to Klebsiella in setting of DM. There is documented association between this condition and malignancy in the literature. -r/o E. histolytica with serology -I discussed case with radiologist who recommended outpt Abdominal CT with and without contrast (no need for tripple phase) to follow-up presumed abscess for resolution. This could be done in 4-6 weeks. This could be followed up again in 6 months with sonogram to verify no growth. -Please note: Abdominal u/s is not recommended for the initial repeat study as the lesion of interest was NOT seen on inpatient u/s. -Okay to DC home from GI perspective with appropriate abx and follow up.
[2018-03-17] MEDS: Insulin Regular 100 units/ml SC SCH ×2 (08:43→11:52)
[2018-03-17] MEDS: Lactobacillus Acidophilus 500 MU Cap PO SCH (08:46)
--- NOTE | 2018-03-17 09:54 | CP.PCM.PN ---
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 WILL GIVE AT 2 WEEK IV TOBRAMYCIN AND PO FLAGYL SHOULD HAVE F/U MRI WITHIN THIS TIME PERIOD Objective - Vital Signs/Intake and Output Vital Signs (last 24 hours): Temp Pulse Resp BP Pulse Ox 97.6 F 106 H 18 114/76 99 03/17/18 08:10 03/17/18 08:10 03/17/18 08:10 03/17/18 08:10 03/17/18 08:10 - Medications Medications: Current Medications Acetaminophen (Tylenol 325mg Tab) 650 mg PO Q4 PRN PRN Reason: Fever >100.4 F Last Admin: 03/11/18 20:15 Dose: 650 mg Alprazolam (Xanax) 2 mg PO BID@0900,2200 [facility] Last Admin: 03/17/18 08:47 Dose: 2 mg Aspirin (Aspirin Chewable) 81 mg PO DAILY [facility] Last Admin: 03/17/18 08:44 Dose: 81 mg Enalapril Maleate (Vasotec) 5 mg PO DAILY [facility] Last Admin: 03/17/18 08:44 Dose: 5 mg Metronidazole (Flagyl 500mg/100ml Ns) 100 mls @ 100 mls/hr IVPB Q8 [facility] PRN Reason: Protocol Last Admin: 03/17/18 08:41 Dose: 100 mls/hr Tobramycin Sulfate 60 mg/ (Sodium Chloride) 101.5 mls @ 100 mls/hr IV Q12H [facility] PRN Reason: Protocol Last Admin: 03/17/18 02:48 Dose: 100 mls/hr Meropenem 1 gm/ Sodium (Chloride) 100 mls @ 100 mls/hr IVPB Q8 [facility] PRN Reason: Protocol Last Admin: 03/17/18 08:43 Dose: 100 mls/hr Insulin Human Regular (Humulin R) 0 units SC ACCU-CHECK [facility] PRN Reason: Protocol Last Admin: 03/17/18 08:43 Dose: Not Given Lactobacillus Acidophilus (Bacid Acidophilus) 1 cap PO BID [facility] Last Admin: 03/17/18 08:46 Dose: 1 cap Pravastatin Sodium (Pravachol) 40 mg PO HS [facility] Last Admin: 03/16/18 22:21 Dose: 40 mg Zolpidem Tartrate (Ambien) 5 mg PO HS PRN PRN Reason: Insomnia Last Admin: 03/16/18 22:21 Dose: 5 mg - Labs Labs: 03/16/18 06:00 03/16/18 06:00
[2018-03-17 11:03] LABS: INR 1.1; PROTHROMBIN TIME 12.7 Seconds (9.8-13.1)
--- NOTE | 2018-03-17 11:25 | CP.PCM.PCO ---
Assessment & Plan - Assessment and Plan (Free Text) Assessment: pt. currently refusing insertion of picc line for Iv Antibiotics at home Discussed w/ , pt. for d/c home today on Cipro 500 mg po bid x 2weeks and flagyl 500mg po tid f/u with pmd , f/u with outpatient repeat CT abd for f/u monitor cbc, cmp Rx for meds provided, Rx for CT abd / labs provided
[2018-03-17 13:35] VITALS: BP 101/66; PULSE 85; RESP 19; TEMP 97.5; O2SAT 95
--- NOTE | 2018-03-17 14:48 | CP.PCM.DIS ---
Provider - Provider Date of Admission: 03/11/18 12:36 Attending physician: Duc Mills MD Diagnosis - Discharge Diagnosis (1) Abdominal pain Status: Acute Priority: High (2) Liver abscess Status: Acute Priority: High (3) Positive blood culture Status: Acute Priority: High (4) Sepsis Status: Acute Hospital Course - Lab Results Lab Results: Micro Results 03/13/18 13:00 Blood Blood Culture - Preliminary NO GROWTH AFTER 4 DAYS 03/13/18 08:05 Stool Stool Culture - Final NO SALMONELLA, SHIGELLA OR CAMPYLOBACTER ISOLATED. 03/13/18 08:05 Stool Ova and Parasite Concentrate Exam - Final 03/11/18 04:50 Blood-Venous Blood Culture - Final Klebsiella Pneumoniae Ssp Pneu 03/11/18 04:50 Blood-Venous Gram Stain - Final 03/11/18 04:38 Blood-Venous Blood Culture - Final Klebsiella Pneumoniae Ssp Pneu 03/11/18 04:38 Blood-Venous Gram Stain - Final 03/11/18 18:26 Urine Urine Culture - Final No Growth (<1,000 CFU/ML) Most Recent Lab Values WBC 7.7 K/uL (4.8-10.8) 03/16/18 06:00 RBC 5.50 Mil/uL (4.40-5.90) 03/16/18 06:00 Hgb 16.8 g/dL (12.0-18.0) D 03/16/18 06:00 Hct 50.2 % (35.0-51.0) 03/16/18 06:00 MCV 91.3 fl (80.0-94.0) 03/16/18 06:00 MCH 30.5 pg (27.0-31.0) 03/16/18 06:00 MCHC 33.4 g/dL (33.0-37.0) 03/16/18 06:00 RDW 14.9 % (11.5-14.5) H 03/16/18 06:00 Plt Count 258 K/uL (130-400) D 03/16/18 06:00 MPV 7.4 fl (7.2-11.7) 03/11/18 04:31 Neut % (Auto) 90.2 % (50.0-75.0) H 03/11/18 04:31 Lymph % (Auto) 2.5 % (20.0-40.0) L 03/11/18 04:31 Bibb % (Auto) 7.0 % (0.0-10.0) 03/11/18 04:31 Eos % (Auto) 0.0 % (0.0-4.0) 03/11/18 04:31 Baso % (Auto) 0.3 % (0.0-2.0) 03/11/18 04:31 Neut # (Auto) 12.0 K/uL (1.8-7.0) H 03/11/18 04:31 Lymph # (Auto) 0.3 K/uL (1.0-4.3) L 03/11/18 04:31 Bibb # (Auto) 0.9 K/uL (0.0-0.8) H 03/11/18 04:31 Eos # (Auto) 0.0 K/uL (0.0-0.7) 03/11/18 04:31 Baso # (Auto) 0.0 K/uL (0.0-0.2) 03/11/18 04:31 Neutrophils % (Manual) 90 % (42-75) H 03/11/18 04:31 Band Neutrophils % 1 % (0-2) 03/11/18 04:31 Lymphocytes % (Manual) 5 % (20-50) L 03/11/18 04:31 Monocytes % (Manual) 4 % (0-10) 03/11/18 04:31 Platelet Estimate Normal (NORMAL) 03/11/18 04:31 Poikilocytosis (manual Slight 03/11/18 04:31 Anisocytosis (manual) Slight 03/11/18 04:31 Tear Drop Cells Slight 03/11/18 04:31 Ovalocytes Slight 03/11/18 04:31 PT 12.7 Seconds (9.8-13.1) 03/17/18 10:52 INR 1.1 03/17/18 10:52 pO2 30 mm/Hg (30-55) 03/11/18 05:03 VBG pH 7.39 (7.32-7.43) 03/11/18 05:03 VBG pCO2 41 mmHg (40-60) 03/11/18 05:03 VBG HCO3 23.7 mmol/L 03/11/18 05:03 VBG Total CO2 26.1 mmol/L (22-28) 03/11/18 05:03 VBG O2 Sat (Calc) 60.6 % (40-65) 03/11/18 05:03 VBG Base Excess -0.2 mmol/L (0.0-2.0) L 03/11/18 05:03 VBG Potassium 3.5 mmol/L (3.6-5.2) L 03/11/18 05:03 Sodium 135.0 mmol/L (132-148) 03/11/18 05:03 Chloride 103.0 mmol/L (98-107) 03/11/18 05:03 Glucose 170 mg/dL (75-110) H 03/11/18 05:03 Lactate 1.4 mmol/L (0.7-2.1) 03/11/18 05:03 FiO2 21.0 % 03/11/18 05:03 Sodium 141 mmol/l (132-148) 03/16/18 06:00 Potassium 4.9 MMOL/L (3.6-5.0) 03/16/18 06:00 Chloride 103 mmol/L (98-107) 03/16/18 06:00 Carbon Dioxide 29 mmol/L (22-30) 03/16/18 06:00 Anion Gap 14 (10-20) 03/16/18 06:00 BUN 13 mg/dl (9-20) 03/16/18 06:00 Creatinine 0.8 mg/dl (0.8-1.5) 03/16/18 06:00 Est GFR ( Amer) > 60 03/16/18 06:00 Est GFR (Non-Af Amer) > 60 03/16/18 06:00 POC Glucose (mg/dL) 222 mg/dL (65-110) H 03/17/18 11:08 Random Glucose 107 mg/dL (75-110) 03/16/18 06:00 Calcium 9.2 mg/dL (8.4-10.2) 03/16/18 06:00 Total Bilirubin 0.4 mg/dl (0.2-1.3) 03/14/18 05:30 Direct Bilirubin 0.4 mg/ml (0.0-0.4) 03/12/18 05:30 AST 26 U/L (17-59) 03/14/18 05:30 ALT 56 U/L (21-72) 03/14/18 05:30 Alkaline Phosphatase 43 U/L (38-126) 03/14/18 05:30 Total Protein 5.8 G/DL (6.3-8.2) L 03/14/18 05:30 Albumin 3.1 g/dL (3.5-5.0) L 03/14/18 05:30 Globulin 2.7 gm/dL (2.2-3.9) 03/14/18 05:30 Albumin/Globulin Ratio 1.2 (1.0-2.1) 03/14/18 05:30 Amylase 60 U/L (30-110) 03/12/18 05:30 Lipase 41 U/L (23-300) 03/12/18 05:30 Alpha Fetoprotein 1.5 IU/mL (0.0-7.22) 03/12/18 05:30 Prostate Specific Ag 0.910 ng/ML (0.00-4.0) 03/15/18 10:26 Thyroxine (T4) 4.89 ug/dl (5.5-11.0) L 03/12/18 05:30 TSH 3rd Generation 1.94 mIU/ML (0.46-4.68) 03/12/18 05:30 Venous Blood Potassium 3.5 mmol/L (3.6-5.2) L 03/11/18 05:03 Urine Color Yellow (YELLOW) 03/11/18 08:20 Urine Clarity Clear (Clear) 03/11/18 08:20 Urine pH 6.0 (5.0-8.0) 03/11/18 08:20 Ur Specific [place] 1.011 (1.003-1.030) 03/11/18 08:20 Urine Protein Negative mg/dL (NEGATIVE) 03/11/18 08:20 Urine Glucose (UA) Neg mg/dL (Normal) 03/11/18 08:20 Urine Ketones Trace mg/dL (NEGATIVE) 03/11/18 08:20 Urine Blood Negative (NEGATIVE) 03/11/18 08:20 Urine Nitrate Negative (NEGATIVE) 03/11/18 08:20 Urine Bilirubin Negative (NEGATIVE) 03/11/18 08:20 Urine Urobilinogen 0.2-1.0 mg/dL (0.2-1.0) 03/11/18 08:20 Ur Leukocyte Esterase Neg Rohnda/uL (Negative) 03/11/18 08:20 Urine RBC (Auto) < 1 /hpf (0-3) 03/11/18 08:20 C. difficile Ag & Toxin Negative (NEGATIVE) 03/13/18 08:05 Hepatitis A IgM Ab Negative (NEGATIVE) 03/12/18 05:30 Hep Bs Antigen Negative (NEGATIVE) 03/12/18 05:30 Hep B Core IgM Ab Negative (NEGATIVE) 03/12/18 05:30 Hepatitis C Antibody Negative (NEGATIVE) 03/12/18 05:30 Discharge Exam - Head Exam Head Exam: ATRAUMATIC, NORMAL INSPECTION, NORMOCEPHALIC Discharge Plan - Discharge Medications Prescriptions: Lactobacillus Acidophilus [Bacid Acidophilus] 1 cap PO BID #20 cap Ciprofloxacin HCl [Cipro] 500 mg PO BID #28 tablet Metronidazole [Flagyl] 500 mg PO Q8 #42 tablet - Follow Up Plan Condition: STABLE Disposition: HOME/ ROUTINE Instructions: Acute Abdomen (Belly Pain), Adult (DC), Sepsis, Adult (DC) Additional Instructions: pt. currently refusing insertion of picc line for Iv Antibiotics at home Discussed w/ , pt. for d/c home today on Cipro 500 mg po bid x 2weeks and flagyl 500mg po tid f/u with pmd , f/u with outpatient in [address] abd for f/u monitor cbc, cmp Rx for meds provided, Rx for CT abd / labs provided cleared for d/c today by Referrals: Tracey Sanchez MD [Medical Doctor] -
== END 2018-03-17 14:30 | disposition home or self-care (01) | DRG 584 ==
LOC: H.ER 03:17 → H.ERHOLD 12:36 → H.TEL 21:03
PROVIDERS: ADMIT Internal Medicine Pulmonary Disease; ATTEND Internal Medicine Pulmonary Disease
DX: A41.59 Other Gram-negative sepsis (principal); K75.0 Abscess of liver; K21.9 Gastro-esophageal reflux disease without esophagitis; E11.9 Type 2 diabetes mellitus without complications; N40.0 Benign prostatic hyperplasia without lower urinary tract symptoms; I10 Essential (primary) hypertension; E78.5 Hyperlipidemia, unspecified; E78.00 Pure hypercholesterolemia, unspecified; Z16.11 Resistance to penicillins; F41.9 Anxiety disorder, unspecified; M19.90 Unspecified osteoarthritis, unspecified site; F17.290 Nicotine dependence, other tobacco product, uncomplicated; Z79.84 Long term (current) use of oral hypoglycemic drugs; Z79.899 Other long term (current) drug therapy

== ENCOUNTER 2018-03-19 14:08 | Emergency (ER) | payer OTHER ==
[2018-03-19 14:08] VITALS: BMI 26.4
[2018-03-19 14:14] VITALS: RESP 18; TEMP 98
[2018-03-19] MEDS ORDERED: Sodium Chloride 0.9% 1,000 ML IV STA (14:30)
--- NOTE | 2018-03-19 14:31 | ED PDOC ---
HPI: General Adult Time Seen by Provider: 03/19/18 14:18 Chief Complaint (Nursing): Weakness/Neurological Deficit Chief Complaint (Provider): Weakness History Per: Patient History/Exam Limitations: no limitations Onset/Duration Of Symptoms: Days (today) Additional History Per: Patient Additional Complaint(s): Pt. with weakness, body aches, chills today. Has been having weakness since dc from the hospital which was recently. Pt. dx with Liver mass and with Klebsiella Blood cultures+ infection. Patient taking PO cipro/flagyl, declined infusion Abx. PCP Dr. Staton. No chest pain, dyspnea. Has mild abd pain and back pain. No numbness, tingles. No dizziness. No incontinence or constipation. No neck pain. Past Medical History Reviewed: Nursing Documentation, Vital Signs Vital Signs: Last Vital Signs Temp 98 F 03/19/18 14:11 Pulse 94 H 03/19/18 14:11 Resp 18 03/19/18 14:11 BP 135/89 03/19/18 14:11 Pulse Ox 99 03/19/18 14:31 - Medical History PMH: Anxiety, Arthritis, Depression, HTN, Hypercholesterolemia, Hyperlipidemia Denies: Atrial Fibrillation, CHF, HIV, Chronic Kidney Disease - Surgical History Surgical History: Endoscopy - Family History Family History: States: Unknown Family Hx - Home Medications Home Medications: Ambulatory Orders Medication Instructions Recorded ALPRAZolam [Xanax] 2 mg PO BID 03/11/18 Aspirin [Aspirin Chewable] 81 mg PO DAILY 03/11/18 Enalapril Maleate [Vasotec] 5 mg PO DAILY 03/11/18 Metformin HCl [Glucophage] 1,000 mg PO BID 03/11/18 Pravastatin Sodium [Pravachol] 40 mg PO HS 03/11/18 SITagliptin [Januvia] 100 mg PO DAILY 03/11/18 Zolpidem Tartrate [Ambien] 10 mg PO HS PRN 03/11/18 Lactobacillus Acidophilus [Bacid 1 cap PO BID #20 cap 03/16/18 Acidophilus] Ciprofloxacin HCl [Cipro] 500 mg PO BID #28 tablet 03/17/18 Metronidazole [Flagyl] 500 mg PO Q8 #42 tablet 03/17/18 - Allergies Allergies/Adverse Reactions: Allergies Allergy/AdvReac Type Severity Reaction Status Date / Time No Known Allergies Allergy Verified 03/11/18 03:44 Review of Systems ROS Statement: Except As Marked, All Systems Reviewed And Found Negative Constitutional: Positive for: Chills, Weakness Gastrointestinal: Positive for: Abdominal Pain Musculoskeletal: Positive for: Back Pain Neurological: Positive for: Weakness Physical Exam - Reviewed Nursing Documentation Reviewed: Yes Vital Signs Reviewed: Yes - Physical Exam Appears: Positive for: Non-toxic, No Acute Distress Head Exam: Positive for: ATRAUMATIC, NORMAL INSPECTION, NORMOCEPHALIC Skin: Positive for: Normal Color, Warm Eye Exam: Positive for: EOMI, Normal appearance, PERRL ENT: Positive for: Normal ENT Inspection Neck: Positive for: Normal, Painless ROM Cardiovascular/Chest: Positive for: Regular Rate, Rhythm. Negative for: Edema Respiratory: Positive for: CNT, Normal Breath Sounds Gastrointestinal/Abdominal: Positive for: Normal Exam, Soft. Negative for: Tenderness Back: Positive for: Normal Inspection. Negative for: L CVA Tenderness, R CVA Tenderness Extremity: Positive for: Normal ROM. 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 Negative for: Motor/Sensory Deficits, Aphasia, Facial Droop - ECG O2 Sat by Pulse Oximetry: 99 Pulse Ox Interpretation: Normal - Progress ED Course And Treament: 1436: Per records, pt. requested to fu with pcp and get repeat blood work and CT abd/pelvis. 1450: Dr. Magallon to take over care. Fu with imaging, labs. Disposition - Clinical Impression Clinical Impression: Generalized muscle weakness - Patient ED Disposition Is Patient to be Admitted: Transfer of Care - Disposition Disposition: Transfer of Care Disposition Time: 14:38 Condition: FAIR Patient Signed Over To: Haylie Magallon
[2018-03-19] MEDS ORDERED: Iohexol 240 (50 ml) PO ONE (14:32)
[2018-03-19] MEDS ORDERED: Iohexol 240 (50 ml) ONE (14:44)
[2018-03-19 14:57] LABS: VENOUS BLOOD GAS BASE EXCESS 0.2 mmol/L (0.0-2.0); VENOUS BLOOD GAS PCO2 39 mmHg (40-60); VENOUS BLOOD GAS PO2 37 mm/Hg (30-55); VENOUS BLOOD PH 7.41 (7.32-7.43)
--- NOTE | 2018-03-19 15:03 | ED PDOC ---
- Laboratory Results Result Diagrams: 03/19/18 15:00 03/19/18 15:00 - ECG ECG: Positive for: Viewed By Me ECG Rhythm: Positive for: Normal QRS O2 Sat by Pulse Oximetry: 99 Medical Decision Making Medical Decision Makin:00p - received patient from Dr. Hernandez. Patient is pending workup including labs and CT that's pending. Patient has recently been treated for liver abscess and bacteremia 8.00p - CT negative. Blood tests negative. Will discharge patient and advised to continue antibiotics as prescribed. Disposition Doctor Will See Patient In The: Office Counseled Patient/Family Regarding: Diagnosis, Need For Followup - Clinical Impression Clinical Impression: Generalized muscle weakness - POA Present On Arrival: None - Disposition Referrals: Tracey Sanchez MD [Family Provider] - [facility] [place] [Outside] Disposition: Routine/Home Disposition Time: 20:00 Condition: FAIR Additional Instructions: Continue taking your medications as prescribed. Instructions: Weakness (ED) Forms: [employer] (Occitan) Print Language: BELARUSIAN
[2018-03-19 15:09] LABS: BASO # 0.1 K/uL (0.0-0.2); BASO % 0.7 % (0.0-2.0); EOS # 0.1 K/uL (0.0-0.7); EOS % 1.4 % (0.0-4.0); HEMOGLOBIN 15.8 g/dL (12.0-18.0); LYMPH # 1.5 K/uL (1.0-4.3); LYMPH % 19.2 % (20.0-40.0); MEAN CORPUSCULAR HEMOGLOBIN 30.5 pg (27.0-31.0); MEAN CORPUSCULAR HGB CONC 34.3 g/dL (33.0-37.0); MEAN PLATELET VOLUME 7.6 fl (7.2-11.7); MONO # 0.7 K/uL (0.0-0.8); MONO % 9.2 % (0.0-10.0); NEUT # 5.4 K/uL (1.8-7.0); NEUT % 69.5 % (50.0-75.0); NRBC % 0.2 % (0.0-0.0); RBC 5.16 Mil/uL (4.40-5.90); RED CELL DISTRIBUTION WIDTH 14.8 % (11.5-14.5); WHITE BLOOD COUNT 7.8 K/uL (4.8-10.8)
[2018-03-19 15:24] LABS: INR 1.1; PROTHROMBIN TIME 12.1 Seconds (9.8-13.1)
[2018-03-19 15:27] LABS: PARTIAL THROMBOPLASTIN TIME 36.3 Seconds (25.6-37.1)
[2018-03-19 15:29] LABS: ALB/GLOB RATIO 1.4 (1.0-2.1); ALBUMIN 4.2 g/dL (3.5-5.0); ALT/SGPT 59 U/L (21-72); AST/SGOT 42 U/L (17-59); BLOOD UREA NITROGEN 16 mg/dl (9-20); CALCIUM 9.3 mg/dL (8.4-10.2); GFR AFRICAN-AMERICAN > 60; GFR NON-AFRICAN AMERICAN > 60; LIPASE 246 U/L (23-300)
--- NOTE | 2018-03-19 15:46 | RAD ---
Date of service: 03/19/2018 HISTORY: dyspnea COMPARISON: No prior. FINDINGS: LUNGS: No active pulmonary disease. PLEURA: No significant pleural effusion identified, no pneumothorax apparent. CARDIOVASCULAR: Normal. OSSEOUS STRUCTURES: No significant abnormalities. VISUALIZED UPPER ABDOMEN: Normal. OTHER FINDINGS: None. IMPRESSION: No active disease.
[2018-03-19] MEDS ORDERED: Iohexol 300 100 ML IJ ONE (17:41)
[2018-03-19] MEDS ORDERED: Sodium Chloride 0.9% 100 ML ONE (17:42)
[2018-03-19 18:21] LABS: URINE BILIRUBIN NEGATIVE (NEGATIVE); URINE BLOOD NEGATIVE (NEGATIVE); URINE CLARITY CLEAR (Clear); URINE COLOR YELLOW (YELLOW); URINE GLUCOSE (UA) NEG (Normal); URINE LEUKOCYTE ESTERASE TRACE Leu/uL (Negative); URINE PROTEIN NEGATIVE (NEGATIVE); URINE UROBILINOGEN 0.2-1.0 mg/dL (0.2-1.0)
[2018-03-19 20:45] VITALS: BP 143/75; PULSE 75; O2SAT 98
--- NOTE | 2018-03-20 07:58 | CARD ---
APPROVED REPORT Date of service: 03/19/2018 <Conclusion> Normal sinus rhythm Normal ECG
--- NOTE | 2018-03-20 10:40 | CT ---
Date of service: 03/19/2018 PROCEDURE: CT Abdomen and Pelvis with contrast HISTORY: abd pain COMPARISON: Abdomen pelvis CT without contrast 03/16/2018. TECHNIQUE: Following oral and intravenous contrast administration, a CT examination of the abdomen and pelvis performed from the domes of the diaphragms to the symphysis pubis with reformatted datasets provided not only axial but also sagittal and coronal series. Contrast dose: Omnipaque 300, 98 cc Radiation dose: Total exam DLP = 526.44 mGy-cm. This CT exam was performed using one or more of the following dose reduction techniques: Automated exposure control, adjustment of the mA and/or kV according to patient size, and/or use of iterative reconstruction technique. FINDINGS: LOWER THORAX: Cardiomegaly reiterated. No pleural or pericardial effusion. Benign subpleural nodule 3.5 mm left lower lobe reiterated. LIVER: Stable 2.4 cm lucency seen at the inferior-most margins of the left lobe liver laterally. GALLBLADDER AND BILE DUCTS: Unremarkable. PANCREAS: Unremarkable. No gross lesion or ductal dilatation. SPLEEN: Unremarkable. ADRENALS: Unremarkable. No mass. KIDNEYS AND URETERS: No hydronephrosis. Stable simple cyst exophytic off the upper pole left kidney medially 4.2 cm greatest dimension. No definite solid mass identified bilaterally. VASCULATURE: Unremarkable. No aortic aneurysm. BOWEL: Stomach is mildly distend with retained fluid and food. No bowel obstruction is appreciable. Moderate AP material scattered throughout the large bowel which obscures the cecum in particular. APPENDIX: Normal appendix. PERITONEUM: Unremarkable. No free fluid. No free air. LYMPH NODES: Unremarkable. No enlarged lymph nodes. BLADDER: Unremarkable. REPRODUCTIVE: Enlarged prostate gland reiterated. Minimal grade 1 spondylolisthesis L5-S1 reiterated. BONES: No acute fracture. OTHER FINDINGS: None. IMPRESSION: No definite acute abdominal or pelvic findings as discussed above. Stable exam as compared prior unenhanced abdomen and pelvis CT 03/16/2018. Lesser details as discussed above. Concordant preliminary report from [facility], 03/19/2018.
== END 2018-03-19 20:46 | disposition home or self-care (01) ==
LOC: H.ER 14:08
DX: M62.81 Muscle weakness (generalized) (principal); K75.0 Abscess of liver
CPT/HCPCS: 71045; 74177; 80053; 81003; 82803; 82948; 83690; 84484; 85025; 85610; 85730; 87040; 87086; 93005; 96374; 99283; J1885; J7030; Q9966; Q9967